=== PATIENT | female | born 1965 | race Caucasian/White ===

== ENCOUNTER 2018-01-18 09:52 | Outpatient (CLI) | payer OTHER, SELFPAY ==
[2018-01-18 11:24] LABS: Abs Immature Grans 0.02 k/cumm (0.0-0.09); Absolute Basophil Count 0.02 k/cumm (0.0-0.2); Absolute Eosinophil Count 0.17 k/cumm (0.0-0.7); Absolute Lymphocyte Count 1.99 k/cumm (1.2-3.4); Absolute Neutrophil Count 4.82 k/cumm (1.2-6.7); Basophils % 0.3; Eosinophils % 2.2; HCT 39.2 % (36.0-46.0); HGB 13.1 g/dL (12.0-15.5); Immature Grans % 0.3; Lymphocytes % 26.1; Mean Corp. HGB Concentration 33.4 g/dL (32.0-36.0); Mean Corpuscular Hemoglobin 28.4 pg (27.0-33.0); Mean Corpuscular Volume 84.8 fL (80-95); Mean Platelet Volume 9.6 fL (8.0-11.0); Monocytes % 7.9; Neutrophils % 63.2; Platelet Count 354 x1000/uL (130-400); RBC 4.62 m/cumm (4.00-5.20); RBC Distribution Width 14.6 % (11.7-14.6); White Blood Cell Count 7.62 k/cumm (4.4-10.8)
[2018-01-18 12:06] LABS: ALT 29 U/L (12-78); AST 17 U/L (15-37); Albumin 3.7 g/dL (3.4-5.0); Alkaline Phosphatase 57 U/L (46-116); Anion Gap 8.6 mmol/L (3-11); BUN 25 mg/dL (7-18); Bilirubin, Total 0.4 mg/dL (0.2-1.0); CO2 25.4 mmol/L (21.0-32.0); CREATININE 0.86 mg/dL (0.55-1.02); Calcium 9.3 mg/dL (8.5-10.1); Chloride 105 mmol/L (98-107); Cholesterol 182 mg/dL (50-200); Glucose 114 mg/dL (70-100); HDL Cholesterol 69 mg/dL (40-60); LDL CHOLESTEROL 96 mg/dL (<100); Potassium 4.5 mmol/L (3.5-5.1); Sodium 139 mmol/L (136-145); Total Protein 6.7 g/dL (6.4-8.2); Triglyceride 48 mg/dL (30-150)
[2018-01-18 15:11] LABS: Amylase 51 U/L (25-115); Lipase 191 U/L (73-393)
[2018-01-18 22:24] LABS: Hemoglobin A1C 5.4 % (4.5-6.2)
== END 2018-01-18 10:12 ==
PROVIDERS: PCP Nurse Practitioner Family; Visit Provider Nurse Practitioner Family
DX: R10.11 Right upper quadrant pain (principal); G89.29 Other chronic pain; E78.5 Hyperlipidemia, unspecified; R73.03 Prediabetes
CPT/HCPCS: 36415; 80053; 80061; 83690; 83721; 82150; 83036; 85025

== ENCOUNTER 2018-05-03 09:54 | Outpatient (REF) | payer OTHER, SELFPAY ==
--- NOTE | 2018-05-03 08:50 | PAPFT_PTH ---
PATIENT: Ashlyn Pruitt LOC: [facility] U#:[id number] AGE/SX: 53/F ROOM: RE05/03/[address]: YONY Ortiz : 1965 BED: DIS: 05/03/2018 SPEC #: [id number] RECD: 05/03/18 12:58 STATUS: LASHA REBreanna #: [id number] MACEY: 05/03/18 08:[address]: Maria Rothman DEPT: [facility] Cytology RECD BY: Tangela Wetzel Tissues: 1 - CX/ENDOCX FOR PAP SMEARS Procedures: PAP THIN PREP/UVM Screening HPV DNA PROBE Comments: [id number]
== END 2018-05-03 10:14 ==
LOC: LBN 09:54
PROVIDERS: PCP Nurse Practitioner Family; Visit Provider Nurse Practitioner Family
DX: Z12.4 Encounter for screening for malignant neoplasm of cervix (principal); Z11.51 Encounter for screening for human papillomavirus (HPV)
CPT/HCPCS: 88142; 87624

== ENCOUNTER 2018-08-23 00:40 | Outpatient (CLI) | payer OTHER, SELFPAY ==
--- NOTE | 2018-08-23 07:30 | DI.MAMMO_ITS ---
SYMPTOMS/DIAGNOSIS: SCREENING, Z12.31 MAMMOGRAMS: Mammograms were interpreted according to the usual protocol including computer analysis with CAD system, tomosynthesis and C view imaging. The breast tissue is heterogeneously radiodense, which lowers the sensitivity of the study. There is no dominant mass. There are no suspicious calcifications and there has been no significant interval change when compared with prior images. SUMMARY: No evidence of malignancy, category 1. Yearly screening mammography is recommended. Breast density category C. MQSA ASSESSMENT OF FINDINGS: Negative. Category 1. Patient will receive a letter notifying them of these results. Bi-RADS category C. The breasts are heterogeneously dense, which may obscure small masses.
== END 2018-08-23 01:00 ==
PROVIDERS: PCP Nurse Practitioner Family; Visit Provider Nurse Practitioner Family
DX: Z12.31 Encounter for screening mammogram for malignant neoplasm of breast (principal)
CPT/HCPCS: 77063; 77067

== ENCOUNTER 2018-08-26 19:04 | Emergency (ER) | payer OTHER, SELFPAY ==
[2018-08-26] VITALS (38 sets, daily range): BP systolic 77–154; BP diastolic 40–109; PULSE 57–97; RESP 12–25; TEMP 37.1; O2SAT 99–100
--- NOTE | 2018-08-26 19:17 | DI.RAD_ITS ---
SYMPTOM/DIAGNOSIS: LEFT CHEST PRESSURE AP AND LATERAL CHEST: Comparison is made with 16 December 2009 The heart size is normal. Leads overlie the chest. The lungs appear clear. No infiltrate, effusion or pneumothorax is seen. There are no thoracic compression fractures. IMPRESSION: Negative chest x-ray.
[2018-08-26] MEDS: Aspirin 81 MG CHEW 324 MG CH (19:20)
[2018-08-26 19:26] LABS: Abs Immature Grans 0.02 k/cumm (0.0-0.09); Absolute Basophil Count 0.03 k/cumm (0.0-0.2); Absolute Eosinophil Count 0.12 k/cumm (0.0-0.7); Absolute Lymphocyte Count 3.22 k/cumm (1.2-3.4); Absolute Monocyte Count 0.82 k/cumm (0.11-0.7); Absolute Neutrophil Count 4.92 k/cumm (1.2-6.7); Basophils % 0.3; Eosinophils % 1.3; HCT 39.8 % (36.0-46.0); HGB 13.5 g/dL (12.0-15.5); Immature Grans % 0.2; Lymphocytes % 35.3; Mean Corp. HGB Concentration 33.9 g/dL (32.0-36.0); Mean Corpuscular Hemoglobin 27.1 pg (27.0-33.0); Mean Corpuscular Volume 79.9 fL (80-95); Mean Platelet Volume 9.5 fL (8.0-11.0); Neutrophils % 53.9; Platelet Count 410 x1000/uL (130-400); RBC 4.98 m/cumm (4.00-5.20); RBC Distribution Width 14.1 % (11.7-14.6); White Blood Cell Count 9.13 k/cumm (4.4-10.8)
[2018-08-26 20:09] LABS: ALT 30 U/L (12-78); AST 23 U/L (15-37); Albumin 4.1 g/dL (3.4-5.0); Alkaline Phosphatase 59 U/L (46-116); Anion Gap 13.2 mmol/L (3-11); BUN 9 mg/dL (7-18); Bilirubin, Total 0.8 mg/dL (0.2-1.0); CO2 21.8 mmol/L (21.0-32.0); CREATININE 0.75 mg/dL (0.55-1.02); Calcium 9.7 mg/dL (8.5-10.1); Chloride 104 mmol/L (98-107); Glucose 102 mg/dL (70-100); Lipase 170 U/L (73-393); Magnesium 1.8 mg/dL (1.8-2.4); NT-proBNP 40 pg/mL; Potassium 3.3 mmol/L (3.5-5.1); Sodium 139 mmol/L (136-145); Total Protein 7.4 g/dL (6.4-8.2)
[2018-08-26 20:12] LABS: Troponin I < 0.05 ng/mL (0.00-0.06)
--- NOTE | 2018-08-26 20:17 | DI.VRAD_ITS ---
EXAM: XR Chest, 2 Views EXAM DATE/TIME: 08/26/2018 7:18 PM CLINICAL HISTORY: 53 years old, female; Left-sided chest pain; Patient HX: Left chest pressure TECHNIQUE: Imaging protocol: XR of the chest, 2 views. COMPARISON: No relevant prior studies available. FINDINGS: Lungs: Lung bustamante are clear. No infiltrates. Pulmonary vaculature normal. Pleural space: No pleural effusion. No pneumothorax. Heart/Mediastinum: Heart size normal. No mediastinal widening. Bones/joints: No acute osseous abnormalities are identified. Other findings: No tracheal shift. IMPRESSION: No acute thoracic process. Dictated and Authenticated by: Carlos Muñiz MD. Ordering:GLORIA Krishna MD
--- NOTE | 2018-08-26 20:34 | W.ED.GENAD ---
Discharge Plan Disposition Patient Disposition: [facility] Condition: Stable Discharge Details Chief Complaint: Chest Pain Clinical Impression: Chest pain, Acute electrocardiogram changes Primary Care Provider: Maria Rothman ED Provider: Tomi Gomez Home Meds and New Rx's Prescriptions: No Action bisacodyl [Dulcolax (bisacodyl)] 5 mg tablet,delayed release (DR/EC) 5 mg PO ONCE Qty: 4 RF: 0 polyethylene glycol 3350 17 gram/dose powder 255 g PO ONCE Qty: 255 RF: 0 omeprazole 20 MG capsule,delayed release(DR/EC) 20 mg PO BID Qty: 180 RF: 3 Discharge Data Discharge Date/Time-TO BE ENTERED AT DEPARTURE: 08/26/18 22:01 Medical Decision Making This is a pleasant 53-year-old female who presents today for evaluation of chest pain. Roughly 8 hours ago the patient developed sudden chest heaviness and pressure while sitting. The pain radiated to her left arm. She has nausea but no vomiting. There does appear to be both a food and mild exertional component. It was improved by rest and sleeping. Physical exam demonstrates no significant abnormalities except for a grade 2 systolic murmur which is new per the patient. Vital signs demonstrate an initial hypertension, but no tachycardia, no hypoxemia. Initial EKG showed atypical T wave morphology with diffuse ST depression in the lead II, aVF, III, V4, V5 and V6, with [address] elevation in aVR. Initial sibling nitroglycerin was given, and her blood pressure dropped to the 70s systolic very briefly and then returned to their normal levels shortly thereafter. She had near complete improvement of her chest pressure with the nitroglycerin. Repeat EKG that was ordered immediately after the nitro demonstrated improvement of the ST depressions. This is certainly concerning for cardiac etiology. Patient's laboratory work-up is returned relatively benign, potassium slightly low at 3.3, magnesium normal, electrolytes normal, troponin less than 0.05. proBNP normal. Lipase normal. I am concerned with the patient's symptomatology, especially with the improvement with nitroglycerin and the EKG changes after nitro. Currently her pain has dropped from a 10 out of 10 to a 5 out of 10, will hold off in any additional sublingual nitro, but due to give a trial of Nitropaste. We will contact [facility] for potential consultation and transfer. 9: 04pm Posterior EKG has returned and shows no significant elevation in V7 VA or V9. I did contact [facility] and discussed the case with Dr. Hoskins, he reviewed the EKGs as well, we discussed the ST changes that occurred with nitroglycerin, as well as her symptoms. Although the patient has no cardiac risk factors that we are aware of, with her notable chest pain, her diffuse ST depressions, or elevation in aVR, and V1, and the resolution of these changes with nitroglycerin, I am certainly concerned for an ACS component. We have already started heparin, given aspirin, and Plavix. Cardiology does agree on the need for further evaluation. They have agreed to accept the patient to [facility] for further evaluation and management under Dr. Chatterjee. They do not recommend any TPA at this time. We are currently utilizing morphine for pain control. She rates her pain is a 5 out of 10 at this time. Patient will be transferred by [facility] for further management at [facility]. I have extensively reviewed the treatment plan and discharge instructions with the patient. I have addressed all patient concerns at this time. The patient was made aware of what symptoms to monitor for that would warrant a return to the emergency department. Discussed the plan with the patient, they demonstrate verbal understanding and agreement with our assessment and plan at this time. At time of transfer the patient was reassessed and continued to demonstrate current medical stability. No signs of acute respiratory distress requiring intubation, hemodynamic instability requiring pressor support, or rapidly declining mental status. The patient is stable for transport. EKG 19: 10 Rate 92, intervals normal [address] elevation in V1, as well as aVR, less than 1 mm depression in lead II, aVF, V3, V4, V5 and V6. EKG 19: 30 Rate 81, intervals normal, sinus rhythm, less than [address] elevation in aVR and V1, no more ST depression. No Q waves. EKG 20: 55 Posterior EKG, rate 83, intervals normal, sinus rhythm, ST segments unchanged from prior EKGs, V7, V8, and V9 show no evidence of significant ST elevation. COMPARISON: No relevant prior studies available. FINDINGS: Lungs: Lung bustamante are clear. No infiltrates. Pulmonary vaculature normal. Pleural space: No pleural effusion. No pneumothorax. Heart/Mediastinum: Heart size normal. No mediastinal widening. Bones/joints: No acute osseous abnormalities are identified. Other findings: No tracheal shift. IMPRESSION: No acute thoracic process. Dictated and Authenticated by: Carlos Muñiz MD. Ordering:GLORIA Krishna MD [facility] General Date/Time Provider Initiated Documentation: 08/26/18 19:05. HPI Narrative: This is a 53-year-old female with no significant past medical history who presents today for evaluation of her chest pain. The patient states that earlier this afternoon she was just sitting and eating when she developed a notable chest pressure and heaviness, it felt like there was a significant weight on her chest. It seemed to be worsened by food and exertion, it had radiation to her left arm, gradually worsening continued throughout the day. It was slightly improved when she laid down and rested. She denies any vomiting, but does admit to nausea. She denies any abdominal pain, tearing sensation in her chest, right arm pain, headache or neck pain. She denies any history of tobacco abuse, or high cholesterol, or hypertension. She denies any previous episode like this in the past. She denies any history of cardiac disease. No other complaints at this time. No other modifying factors Related Data Home Medications Medication Instructions Recorded Confirmed omeprazole 20 mg PO BID #180 tab-cap 18 08/26/18 bisacodyl 5 mg tablet,delayed 5 mg PO ONCE #4 tab 02/24/18 06/01/18 release polyethylene glycol 3350 17 255 g PO ONCE #255 gm 02/24/18 06/01/18 gram/dose oral powder Previous Rx's Medication Instructions Recorded omeprazole 20 mg PO BID #180 tab-cap 07/14/17 bisacodyl 5 mg tablet,delayed 5 mg PO ONCE #4 tab 02/24/18 release polyethylene glycol 3350 17 255 g PO ONCE #255 gm 02/24/18 gram/dose oral powder Allergies Allergy/AdvReac Type Severity Reaction Status Date / Time No Known Allergies Allergy Verified 06/01/18 10:51 General Stated Complaint: Chest Pain HARPREET: 2 Review of Systems Review of Systems All systems reviewed & are unremarkable except as noted in HPI and below PFSH Medical History Chronic RUQ pain (Chronic ~2012) GERD (gastroesophageal reflux disease) (Suspected 10/21/14) Surgical History Social History Smoking/Tobacco Use Status: Never Second Hand Exposure: Yes Alcohol Intake: current Alcohol Intake frequency: a few times a month Alcohol type: hard liquor Substance use type: does not use Caregiver/Support person: No Household members: significant other Housing: house Pets and animals: Yes Pets and animals: cat(s) and dog(s) Sexually active: Yes Do you think of yourself as: straight/heterosexual Current gender identity: female What is your relationship status?: living with partner How often do you talk on the phone with friends or family?: three or more times per week How often do you get together with friends or relatives?: once per week How often do you attend episcopalian or rastafari services?: decline to answer Do you belong to any clubs or organized social groups?: no Panel score (0-1 are the most socially isolated patients): 2 What type of physical activity do you participate in: walking Duration: 15-30 minutes/day Frequency: 1-2 times per week Lori/Caodaism: Sikh Special lori needs: No Do you feel safe at home: Yes Female Reproductive History Menstrual control method: other (BTL) History History 4 Para 3 Hx # Term Pregnancies Multiple births Hx # Pregnancies Ectopic pregnancies AB induced Hx Number of Living Children 3 AB spontaneous 1 Exam Narrative Exam Narrative: 1.Const: Well-nourished, Well-developed, appearing stated age 2.Eyes: PERRL, no conjunctival injection, and symmetrical lids. 3.ENT: Atraumatic external nose and ears. Moist MM. Neck: Symmetric, trachea midline, No thyromegaly. 4.CVS: +S1/S2, grade 2 systolic murmur auscultated loudest over the third left intercostal space. Peripheral pulses 2+ and equal in all extremities. Brisk capillary refill in all extremities. 5.RESP: Unlabored respiratory effort. Clear to auscultation bilaterally. No wheezes rales or rhonchi 6.GI: Soft, Nontender/Nondistended, No hepatosplenomegaly. No guarding or rebound. 7.MSK: Normocephalic/Atraumatic, Extremities w/o deformity or ttp No cyanosis or clubbing, Normal movement of all extremities 8.Skin: Warm, Dry. No rashes or lesions. 9.Neuro: roller stainer II-XII grossly intact. Sensation grossly intact, no focal neurologic deficits. 10.Psych: (AAO) x3. Appropriate mood and affect Course Vital Signs Temperature 37.1 C 08/26/18 19:12 Pulse 86 08/26/18 19:12 Respiratory Rate 22 08/26/18 19:12 Blood Pressure 154/88 H 08/26/18 19:12 Pulse Oximetry 100 08/26/18 19:12 Temperature 37.1 C 08/26/18 19:12 Temperature Source Skin 08/26/18 19:12 Pulse 86 08/26/18 19:12 Respiratory Rate 22 08/26/18 19:12 Respiratory Effort Non-Labored 08/26/18 19:22 Blood Pressure 154/88 H 08/26/18 19:12 Pulse Oximetry 100 08/26/18 19:12 Oxygen Delivery Method Room Air 08/26/18 19:12 Oxygen Flow Rate 0 08/26/18 19:12 Pain Level 5 08/26/18 19:12 Lab/Test Results Lab/Test Results: Laboratory Tests Range/Units 08/26/18 08/26/18 19:16 19:16 WBC (4.4-10.8) k/cumm 9.13 RBC (4.00-5.20) m/cumm 4.98 Hgb (12.0-15.5) g/dL 13.5 Hct (36.0-46.0) % 39.8 MCV (80-95) fL 79.9 L MCH (27.0-33.0) pg 27.1 MCHC (32.0-36.0) g/dL 33.9 RDW (11.7-14.6) % 14.1 Plt Count (130-400) x1000/uL 410 H MPV (8.0-11.0) fL 9.5 Immature Gran % 0.2 Neutrophils % 53.9 Lymphocytes % 35.3 Monocytes % 9.0 Eosinophils % 1.3 Basophils % 0.3 Absolute Neutrophils (1.2-6.7) k/cumm 4.92 Absolute Lymphocytes (1.2-3.4) k/cumm 3.22 Absolute Monocytes (0.11-0.7) k/cumm 0.82 H Absolute Eosinophils (0.0-0.7) k/cumm 0.12 Absolute Basophils (0.0-0.2) k/cumm 0.03 Sodium (136-145) mmol/L 139 Potassium (3.5-5.1) mmol/L 3.3 L Chloride (98-107) mmol/L 104 Carbon Dioxide (21.0-32.0) mmol/L 21.8 Anion Gap (3-11) mmol/L 13.2 H BUN (7-18) mg/dL 9 Creatinine (0.55-1.02) mg/dL 0.75 Estimated GFR/1.73 m2 (mL/min/1.73m2) >= 60.00 Glucose (70-100) mg/dL 102 H Calcium (8.5-10.1) mg/dL 9.7 Magnesium (1.8-2.4) mg/dL 1.8 Total Bilirubin (0.2-1.0) mg/dL 0.8 AST (15-37) U/L 23 ALT (12-78) U/L 30 Alkaline Phosphatase (46-116) U/L 59 Troponin I (0.00-0.06) ng/mL < 0.05 NT-Pro-B Natriuret Pep ( - 299) pg/mL 40 Total Protein (6.4-8.2) g/dL 7.4 Albumin (3.4-5.0) g/dL 4.1 Lipase (73-393) U/L 170
--- NOTE | 2018-08-26 20:42 | ED.GENADUL_ITS ---
Discharge Plan Disposition Patient Disposition: [facility] Condition: Stable Discharge Details Chief Complaint: Chest Pain Clinical Impression: Chest pain, Acute electrocardiogram changes Primary Care Provider: Maria Rothman ED Provider: Tomi Gomez Home Meds and New Rx's Prescriptions: No Action bisacodyl [Dulcolax (bisacodyl)] 5 mg tablet,delayed release (DR/EC) 5 mg PO ONCE Qty: 4 RF: 0 polyethylene glycol 3350 17 gram/dose powder 255 g PO ONCE Qty: 255 RF: 0 omeprazole 20 MG capsule,delayed release(DR/EC) 20 mg PO BID Qty: 180 RF: 3 Discharge Data Discharge Date/Time-TO BE ENTERED AT DEPARTURE: 08/26/18 22:01 Medical Decision Making This is a pleasant 53-year-old female who presents today for evaluation of chest pain. Roughly 8 hours ago the patient developed sudden chest heaviness and pressure while sitting. The pain radiated to her left arm. She has nausea but no vomiting. There does appear to be both a food and mild exertional component. It was improved by rest and sleeping. Physical exam demonstrates no significant abnormalities except for a grade 2 systolic murmur which is new per the patient. Vital signs demonstrate an initial hypertension, but no tachycardia, no hypoxemia. Initial EKG showed atypical T wave morphology with diffuse ST depression in the lead II, aVF, III, V4, V5 and V6, with [address] elevation in aVR. Initial sibling nitroglycerin was given, and her blood pressure dropped to the 70s systolic very briefly and then returned to their normal levels shortly thereafter. She had near complete improvement of her chest pressure with the nitroglycerin. Repeat EKG that was ordered immediately after the nitro demonstrated improvement of the ST depressions. This is certainly concerning for cardiac etiology. Patient's laboratory work-up is returned relatively benign, potassium slightly low at 3.3, magnesium normal, electrolytes normal, troponin less than 0.05. proBNP normal. Lipase normal. I am concerned with the patient's symptomatology, especially with the improvement with nitroglycerin and the EKG changes after nitro. Currently her pain has dropped from a 10 out of 10 to a 5 out of 10, will hold off in any additional sublingual nitro, but due to give a trial of Nitropaste. We will contact [facility] for potential consultation and transfer. 9: 04pm Posterior EKG has returned and shows no significant elevation in V7 VA or V9. I did contact [facility] and discussed the case with Dr. Hoskins, he reviewed the EKGs as well, we discussed the ST changes that occurred with nitroglycerin, as well as her symptoms. Although the patient has no cardiac risk factors that we are aware of, with her notable chest pain, her diffuse ST depressions, or elevation in aVR, and V1, and the resolution of these changes with nitroglycerin, I am certainly concerned for an ACS component. We have already started heparin, given aspirin, and Plavix. Cardiology does agree on the need for further evaluation. They have agreed to accept the patient to [facility] for further evaluation and management under Dr. Chatterjee. They do not recommend any TPA at this time. We are currently utilizing morphine for pain control. She rates her pain is a 5 out of 10 at this time. Patient will be transferred by [facility] for further management at [facility]. I have extensively reviewed the treatment plan and discharge instructions with the patient. I have addressed all patient concerns at this time. The patient was made aware of what symptoms to monitor for that would warrant a return to the emergency department. Discussed the plan with the patient, they demonstrate verbal understanding and agreement with our assessment and plan at this time. At time of transfer the patient was reassessed and continued to demonstrate current medical stability. No signs of acute respiratory distress requiring intubation, hemodynamic instability requiring pressor support, or rapidly declining mental status. The patient is stable for transport. EKG 19: 10 Rate 92, intervals normal [address] elevation in V1, as well as aVR, less than 1 mm depression in lead II, aVF, V3, V4, V5 and V6. EKG 19: 30 Rate 81, intervals normal, sinus rhythm, less than [address] elevation in aVR and V1, no more ST depression. No Q waves. EKG 20: 55 Posterior EKG, rate 83, intervals normal, sinus rhythm, ST segments unchanged from prior EKGs, V7, V8, and V9 show no evidence of significant ST elevation. COMPARISON: No relevant prior studies available. FINDINGS: Lungs: Lung bustamante are clear. No infiltrates. Pulmonary vaculature normal. Pleural space: No pleural effusion. No pneumothorax. Heart/Mediastinum: Heart size normal. No mediastinal widening. Bones/joints: No acute osseous abnormalities are identified. Other findings: No tracheal shift. IMPRESSION: No acute thoracic process. Dictated and Authenticated by: Carlos Muñiz MD. Ordering:GLORIA Krishna MD [facility] General Date/Time Provider Initiated Documentation: 08/26/18 19:05 . HPI Narrative: This is a 53-year-old female with no significant past medical history who presents today for evaluation of her chest pain. The patient states that earlier this afternoon she was just sitting and eating when she developed a notable chest pressure and heaviness, it felt like there was a significant we ight on her chest. It seemed to be worsened by food and exertion, it had radiation to her left arm, gradually worsening continued throughout the day. It was slightly improved when she laid down and rested. She denies any vomiting, but does admit to nausea. She denies any abdominal pain, tearing sensation in her chest, right arm pain, headache or neck pain. She denies any history of tobacco abuse, or high cholesterol, or hypertension. She denies any previous episode like this in the past. She denies any history of cardiac disease. No other complaints at this time. No other modifying factors Related Data Home Medications Medication Instructions Recorded Confirmed omeprazole 20 mg PO BID #180 tab-cap 18 08/26/18 bisacodyl 5 mg tablet,delayed 5 mg PO ONCE #4 tab 02/24/18 06/01/18 release polyethylene glycol 3350 17 255 g PO ONCE #255 gm 02/24/18 06/01/18 gram/dose oral powder Previous Rx's Medication Instructions Recorded omeprazole 20 mg PO BID #180 tab-cap 07/14/17 bisacodyl 5 mg tablet,delayed 5 mg PO ONCE #4 tab 02/24/18 release polyethylene glycol 3350 17 255 g PO ONCE #255 gm 02/24/18 gram/dose oral powder Allergies Allergy/AdvReac Type Severity Reaction Status Date / Time No Known Allergies Allergy Verified 06/01/18 10:51 General Stated Complaint: Chest Pain HARPREET: 2 Review of Systems Review of Systems All systems reviewed & are unremarkable except as noted in HPI and below PFSH Medical History Chronic RUQ pain (Chronic ~2012) GERD (gastroesophageal reflux disease) (Suspected 10/21/14) Surgical History Ligation of fallopian tube (Inactive ~1993) Social History Smoking/Tobacco Use Status: Never Second Hand Exposure: Yes Alcohol Intake: current Alcohol Intake frequency: a few times a month Alcohol type: hard liquor Substance use type: does not use Caregiver/Support person: No Household members: significant other Housing: house Pets and animals: Yes Pets and animals: cat(s) and dog(s) Sexually active: Yes Do you think of yourself as: straight/heterosexual Current gender identity: female What is your relationship status?: living with partner How often do you talk on the phone with friends or family?: three or more times per week How often do you get together with friends or relatives?: once per week How often do you attend sikh or pentecostal services?: decline to answer Do you belong to any clubs or organized social groups?: no Panel score (0-1 are the most socially isolated patients): 2 What type of physical activity do you participate in: walking Duration: 15-30 minutes/day Frequency: 1-2 times per week Lori/Mu-Ism: Yazidism Special lori needs: No Do you feel safe at home: Yes Female Reproductive History Menstrual control method: other (BTL) History History 4 Para 3 Hx # Term Pregnancies Multiple births Hx # Pregnancies Ectopic pregnancies AB induced Hx Number of Living Children 3 AB spontaneous 1 Exam Narrative Exam Narrative: 1.Const: Well-nourished, Well-developed, appearing stated age 2.Eyes: PERRL, no conjunctival injection, and symmetrical lids. 3.ENT: Atraumatic external nose and ears. Moist MM. Neck: Symmetric, trachea midline, No thyromegaly. 4.CVS: +S1/S2, grade 2 systolic murmur auscultated loudest over the third left intercostal space. Peripheral pulses 2+ and equal in all extremities. Brisk capillary refill in all extremities. 5.RESP: Unlabored respiratory effort. Clear to auscultation bilaterally. No wheezes rales or rhonchi 6.GI: Soft, Nontender/Nondistended, No hepatosplenomegaly. No guarding or rebound. 7.MSK: Normocephalic/Atraumatic, Extremities w/o deformity or ttp No cyanosis or clubbing, Normal movement of all extremities 8.Skin: Warm, Dry. No rashes or lesions. 9.Neuro: application support manager II-XII grossly intact. Sensation grossly intact, no focal neurologic deficits. 10.Psych: (AAO) x3. Appropriate mood and affect Course Vital Signs Temperature 37.1 C 08/26/18 19:12 Pulse 86 08/26/18 19:12 Respiratory Rate 22 08/26/18 19:12 Blood Pressure 154/88 H 08/26/18 19:12 Pulse Oximetry 100 08/26/18 19:12 Temperature 37.1 C 08/26/18 19:12 Temperature Source Skin 08/26/18 19:12 Pulse 86 08/26/18 19:12 Respiratory Rate 22 08/26/18 19:12 Respiratory Effort Non-Labored 08/26/18 19:22 Blood Pressure 154/88 H 08/26/18 19:12 Pulse Oximetry 100 08/26/18 19:12 Oxygen Delivery Method Room Air 08/26/18 19:12 Oxygen Flow Rate 0 08/26/18 19:12 Pain Level 5 08/26/18 19:12 Lab/Test Results Lab/Test Results: Laboratory Tests Range/Units 08/26/18 08/26/18 19:16 19:16 WBC (4.4-10.8) k/cumm 9.13 RBC (4.00-5.20) m/cumm 4.98 Hgb (12.0-15.5) g/dL 13.5 Hct (36.0-46.0) % 39.8 MCV (80-95) fL 79.9 L MCH (27.0-33.0) pg 27.1 MCHC (32.0-36.0) g/dL 33.9 RDW (11.7-14.6) % 14.1 Plt Count (130-400) x1000/uL 410 H MPV (8.0-11.0) fL 9.5 Immature Gran % 0.2 Neutrophils % 53.9 Lymphocytes % 35.3 Monocytes % 9.0 Eosinophils % 1.3 Basophils % 0.3 Absolute Neutrophils (1.2-6.7) k/cumm 4.92 Absolute Lymphocytes (1.2-3.4) k/cumm 3.22 Absolute Monocytes (0.11-0.7) k/cumm 0.82 H Absolute Eosinophils (0.0-0.7) k/cumm 0.12 Absolute Basophils (0.0-0.2) k/cumm 0.03 Sodium (136-145) mmol/L 139 Potassium (3.5-5.1) mmol/L 3.3 L Chloride (98-107) mmol/L 104 Carbon Dioxide (21.0-32.0) mmol/L 21.8 Anion Gap (3-11) mmol/L 13.2 H BUN (7-18) mg/dL 9 Creatinine (0.55-1.02) mg/dL 0.75 Estimated GFR/1.73 m2 (mL/min/1.73m2) >= 60.00 Glucose (70-100) mg/dL 102 H Calcium (8.5-10.1) mg/dL 9.7 Magnesium (1.8-2.4) mg/dL 1.8 Total Bilirubin (0.2-1.0) mg/dL 0.8 AST (15-37) U/L 23 ALT (12-78) U/L 30 Alkaline Phosphatase (46-116) U/L 59 Troponin I (0.00-0.06) ng/mL < 0.05 NT-Pro-B Natriuret Pep ( - 299) pg/mL 40 Total Protein (6.4-8.2) g/dL 7.4 Albumin (3.4-5.0) g/dL 4.1 Lipase (73-393) U/L 170
[2018-08-26] MEDS: MORPHine 10 MG/ML VIAL 4 MG IVP (21:13)
[2018-08-26] MEDS: Clopidogrel 300 MG TAB PO (21:14)
[2018-08-26 21:25] LABS: INR 1.1 (0.9-1.1); PTT Activated 23.1 sec (21.0-31.4); Prothrombin Time 10.8 sec (9.3-11.0)
== END 2018-08-26 22:01 | disposition short-term general hospital (02) ==
PROVIDERS: Emergency Provider Student in an Organized Health Care Education/Training Program; PCP Nurse Practitioner Family
DX: R07.9 Chest pain, unspecified (principal); R94.31 Abnormal electrocardiogram [ECG] [EKG]
CPT/HCPCS: 36415; 80053; 83690; 93005; 99285; 71046; 82565; 83735; 83880; 84484; 85025; 85610; 85730; 93010; J2270

== ENCOUNTER 2018-11-03 08:57 | Day surgery (SDC) | payer OTHER, SELFPAY ==
[2018-11-03 09:15] VITALS: BP 142/91; PULSE 79; RESP 18; TEMP 36.7; O2SAT 100
[2018-11-03] MEDS: Lactated Ringers 1,000 ML 80 ML IV (09:36)
--- NOTE | 2018-11-03 10:39 | W.PM.DSUDISC ---
Discharge Plan Disposition Patient Disposition: HOME Condition: Good Discharge Details Reason For Visit: EGD, colonoscopy Attending Provider: Julieta Villa Primary Care Provider: Maria Rothman Home Meds and New Rx's Prescriptions: Continued omeprazole 20 mg capsule,delayed release(DR/EC) 20 mg PO DAILY RF: 0 Discharge Instructions Additional Instructions: Findings: Your EGD looked normal. Routine biopsies were done, my office will contact you with results. Your colonoscopy was normal. Follow up: Plan for routine screening colonoscopy in 10 years or sooner as symptoms indicate. Please call if you develop: fevers >101.5 Nausea or Vomiting Abdominal pain that is not transient DAY SURGERY UNIT POST COLONOSCOPY INSTRUCTIONS 1. Because there will be medication in your system for the next 24 hours, you may feel a little sleepy. Your coordination will be affected. Therefore: a. Do not drive or operate dangerous equipment for 24 hours. b. Do not drink alcohol beverages for 24 hours (not even beer). c. Plan to go home and rest for the day. 2. Generally there are no restrictions on your activity after a day or so has gone by, but you may feel a bit fatigued for a few days. 3 After you arrive home you may have a light meal and return to a normal diet as you can tolerate it without feeling sick to your stomach. 4. After surgery, you may feel pain or discomfort. This should be only transient, but if it persists please contact your doctor. 5. If there are any questions regarding the findings of your procedure, please feel free to contact your doctor. 6. If you are unable to contact your doctor with a problem, contact the hospital at [phone]. 7. Continue all your regular medications unless directed otherwise. I understand the above instructions and have no questions. Signature of Patient or Responsible Adult Escort Date/Time Name of Responsible Adult Escort Signature of Nurse Date/Time Activity:: Activity as Tolerated Diet:: As Tolerated Discharge Orders Discharge Orders: Discharge Order (Routine); Ordered 11/03/18 Ordered By: Julieta Villa DS: Diagnosis Discharge Diagnosis (1) Normal colonoscopy: Status: Acute (2) Hx of esophagogastroduodenoscopy: Status: Chronic
--- NOTE | 2018-11-03 10:53 | STOM_PTH ---
PATIENT: Ashlyn Pruitt LOC: [facility] U#:[id number] AGE/SX: 53/F ROOM: RE11/03/[address]: Julieta Villa MD : [id number] BED: DIS: 11/03/2018 SPEC #: [id number] RECD: 11/03/18 12:50 STATUS: LASHA REQ #: [id number] MACEY: 11/03/18 10:[address]: Julieta Villa DEPT: Surgical Specimen RECD BY: Tangela Wetzel ENTERED: 11/03/18 12:51 SP TYPE: STOMACH OTHR DR: YONY Ortiz Tissues: 1 - BIOPSY BOWEL 2 - STOMACH BIOPSY Procedures: GROSS AND MICRO LEVEL 4 Comments: [id number]
[2018-11-03 12:05] VITALS: BP 119/86; PULSE 61; RESP 16; TEMP 36.3; O2SAT 100
--- NOTE | 2018-11-03 12:25 | ENDO_ITS ---
REPORT OF OPERATIVE PROCEDURE DATE OF SURGERY November 03, 2018 PREOPERATIVE DIAGNOSES 1. Reflux. 2. Right upper quadrant pain. 3. Need for colon screening. POSTOPERATIVE DIAGNOSES 1. Normal EGD. 2. Normal colon. PROCEDURES 1. EGD with duodenal and gastric biopsies. 2. Colonoscopy. SURGEON Julieta Villa M.D. ANESTHESIA General. INDICATIONS This is a 53-year-old woman with a penitentiary history of reflux and chronic right upper quadrant pain. She is also due for her first screening colonoscopy. She is asymptomatic and has no family history o f colon cancer. PROCEDURE DESCRIPTION She was placed in the left lateral decubitus position. Propofol was titrated to sedation. The scope w as advanced into the esophagus under direct visualization and down into the stomach and the duodenum. There was no duodenitis or ulcers noted. Biopsies were taken from the second portion to evaluate fo r celiac disease. The stomach itself appeared normal, including a retroflexed view of the fundus and lesser curvature. Routine biopsy was taken from the gastric antrum to evaluate for possible H. pylori . The GE junction showed no evidence of masses, Gupta's, inflammation or strictures. The air was wood ctioned from the stomach and the scope withdrawn with no esophageal lesions found. Digital rectal examination revealed no abnormalities. The scope was advanced to the cecum without dif ficulty. Her prep was excellent. The ileocecal valve and appendiceal orifice were clearly identified . The scope was slowly withdrawn with no abnormalities seen within the ascending, transverse, descend ing, sigmoid colon or rectum, including on retroflexed view. She tolerated the procedure well and was stable to Recovery. She will need a followup screening colonoscopy in 10 years or sooner if symptoms indicate. CC: Maria Rothman M.D.
== END 2018-11-03 12:26 | disposition home or self-care (01) ==
PROVIDERS: PCP Nurse Practitioner Family; Visit Provider Surgery
PROC: (CPT 43239; principal; 2018-11-03 11:15)
DX: Z12.11 Encounter for screening for malignant neoplasm of colon (principal); R10.11 Right upper quadrant pain; K21.9 Gastro-esophageal reflux disease without esophagitis
CPT/HCPCS: 43239; 45378; 81025; 88305; J2250; J3010

== ENCOUNTER 2021-06-16 01:27 | Outpatient (CLI) | payer OTHER, SELFPAY ==
--- NOTE | 2021-06-16 08:15 | DI.RAD_ITS ---
Exam(s) XR SHOULDER RT COMPLETE 2+V EXAM: XR SHOULDER RT COMPLETE 2+V CLINICAL HISTORY: right shoulder pain, M25.511. TECHNIQUE: 2D digital imaging was performed of the right shoulder. Five images were obtained. AP, Grashey, Y-view and axillary views were obtained. COMPARISON: No exams were available for comparison FINDINGS: BONES: No acute fracture is present. No bony destructive lesion is seen. JOINTS: No dislocation present. SOFT TISSUE: Normal. IMPRESSION: Unremarkable radiographs of the right shoulder. DATA REPOSITORY: RADIATION DOSE DELIVERED:
== END 2021-06-16 01:47 ==
PROVIDERS: PCP Nurse Practitioner Family; Visit Provider Nurse Practitioner Family
DX: M25.511 Pain in right shoulder (principal)
CPT/HCPCS: 73030

== ENCOUNTER → 2021-07-13 00:15 | Outpatient (CLI) | payer OTHER, SELFPAY ==
--- NOTE | 2021-07-13 08:15 | DI.MAMMO_ITS ---
Exam(s) MAMMO SCREENING EXAM: MAMMO SCREENING CLINICAL HISTORY: screening,Z12.39 TECHNIQUE: Mammograms were interpreted according to the usual protocol including computer analysis w [facility] CAD system, tomosynthesis and C-view imaging. COMPARISON: 2011 through 2018 FINDINGS: The breasts are composed of heterogeneously dense fibroglandular densities, Breast Density category C . No suspicious masses or suspicious microcalcifications are seen. No skin thickening or abnormal axillary lymph nodes are seen. There has been no significant change from prior exams. IMPRESSION: BI-RADS Category 1, Negative mammogram. Yearly screening mammography is recommended. Breast Density Category C, heterogeneously Dense. The mammogram demonstrates the patient's breast tissue is dense. Dense breast tissue is very common a nd is not abnormal but dense breast tissue can make it harder to find cancer on a mammogram. Also, de nse breast tissue may increase breast cancer risk. This information about the result of the mammogram report was provided to the patient to raise their awareness. Use this report when you speak with the patient about their risks for breast cancer, which includes their family history. At that time, you may recommend additional screening tests (Ultrasound or MRI) as they might be useful based on their r isk. A negative radiographic report should not delay biopsy if a dominant or clinically suspicious mass is present. Up to ten percent of cancers are not identified on mammography. A negative report may reinforce clinical impression. Adenosis and dense breasts may obscure an underlying neoplasm. False positive reports average 6 to 10%.
== END ==
PROVIDERS: PCP Nurse Practitioner Family; Visit Provider Nurse Practitioner Family
DX: Z12.31 Encounter for screening mammogram for malignant neoplasm of breast (principal)
CPT/HCPCS: 77063; 77067

== ENCOUNTER → 2021-08-14 00:14 | Outpatient (CLI) | payer OTHER, SELFPAY ==
--- NOTE | 2021-08-14 06:15 | DI.MRI_ITS ---
Exam(s) MR UPPER JOINT RT WO EXAM: MR UPPER JOINT RT WO CLINICAL HISTORY: Persistent SHOULDER pain,weakness,TRAUMATIC TEAR RT RTC,S46.011A. TECHNIQUE: Multiplanar multisequence MRI was performed. COMPARISON: CR XR SHOULDER RT COMPLETE 2+V from 06/16/2021 FINDINGS: BONES: There is no fracture or contusion pattern. JOINTS: There are mild degenerative changes seen at the acromioclavicular joint. The glenohumeral nikki int is normal. TENDONS: Supraspinatus: There is hyper intense intrasubstance signal seen in the midportion of the supraspinat us tendon consistent with a partial tear. Infraspinatus: Unremarkable. Subscapularis: Unremarkable. Teres Minor: There is a question of mild hyperintense signal seen in the teres minor tendon suspiciou s for degeneration or partial tear. Biceps and [place]: Unremarkable. MUSCLES: Unremarkable. GLENOID LABRUM: There is heterogeneous signal seen in the superior and anterior labrum. This may rep resent a tear or degeneration. SOFT TISSUES: Unremarkable. LIGAMENTS: Unremarkable. OTHER: There is a small amount of fluid seen in the subacromial subdeltoid bursa. IMPRESSION: 1. Findings of a intrasubstance tear of the supraspinatus tendon. 2. Mild hyperintense signal seen in the teres minor tendon which may represent degeneration or partia l tear. 3. Heterogeneous signal seen in the superior and anterior labrum which may represent a tear or degene ration. An MR arthrogram may be considered for further evaluation. DATA REPOSITORY:
== END ==
PROVIDERS: PCP Nurse Practitioner Family; Visit Provider Student in an Organized Health Care Education/Training Program
DX: M25.511 Pain in right shoulder; S46.011A Strain of muscle(s) and tendon(s) of the rotator cuff of right shoulder, initial encounter; M25.411 Effusion, right shoulder
CPT/HCPCS: 73221

== ENCOUNTER 2021-09-09 02:34 | Outpatient (CLI) | payer OTHER, SELFPAY ==
[2021-09-09 12:33] LABS: Source Nasal/Nares
[2021-09-09 17:37] LABS: COVID-19 PCR Negative (Negative)
== END 2021-09-09 02:35 | disposition home or self-care (01) ==
PROVIDERS: PCP Nurse Practitioner Family; Visit Provider Student in an Organized Health Care Education/Training Program
DX: Z20.822 Contact with and (suspected) exposure to COVID-19 (principal); Z01.818 Encounter for other preprocedural examination
CPT/HCPCS: 87635

== ENCOUNTER 2021-09-11 06:01 | Day surgery (SDC) | payer OTHER, SELFPAY ==
[2021-09-11] VITALS (8 sets, daily range): BP systolic 77–153; BP diastolic 35–87; PULSE 56–84; RESP 15–21; TEMP 36.3–36.7; O2SAT 97–99; BMI 26.6
--- NOTE | 2021-09-11 06:29 | W.ANESPRE ---
General Info Date of Service Date Performed: 09/11/21 Height: 5 ft 4 in Weight: 70.6 kg Body Mass Index (BMI): 26.6 Surgical Procedure: Operation Date: 09/11/21 07:40 Proposed Procedure Side Surgeon p Shoulder Possible Rotator Cuff Arthroscopic w/Extensive Debridement, Biceps Tenodesis, Subacromial Decompression Right Umair Hays MD Meds Allergies and Home Medications Allergies Allergy/AdvReac Type Severity Reaction Status Date / Time No Known Allergies Allergy Verified 09/11/21 07:15 Home Medication Medication Instructions Recorded omeprazole 20 mg capsule,delayed 20 mg PO DAILY #90 tab-caps 06/12/21 release Current Visit Medications: Current Medications Generic Name Dose Route Start Last Admin Trade Name Freq PRN Reason Stop Dose Admin Ringer's Solution 1,000 mls @ 30 mls/hr 09/11/21 06:00 IV 10/10/21 23:59 INFUSION ALEX Cefazolin Sodium/Dextrose 2 gm in 50 mls @ 100 mls/hr 09/11/21 06:00 Ancef Duplex IVPB 09/11/21 16:00 PREOP ALEX IV Miscellaneous Supplies 1 each 09/11/21 06:00 Iv Access IV 10/10/21 23:59 DIRECTED ALEX Sodium Chloride 0 ml 09/11/21 06:00 Normal Saline Flush 10 Ml Syr IV 10/10/21 23:59 PRN PRN Sodium Chloride 0 ml 09/11/21 06:00 Normal Saline 10 Ml Vial IJ 10/10/21 23:59 DIRECTED PRN Sterile Water 0 ml 09/11/21 06:00 Water,Injection,Sterile 10 Ml Vial IJ 10/10/21 23:59 DIRECTED PRN PFSH Active Problems Active Problems: Problem Status Onset Code Adhesive capsulitis of right shoulder M75.01 Bursitis of right shoulder M75.51 Tendonitis of long head of biceps brachii of right shoulder M75.21 Traumatic tear of right rotator cuff S46.011A Chronic RUQ pain ~2012 R10.11, G89.29 GERD (gastroesophageal reflux disease) K21.9 Onychomycosis B35.1 Surgical History Surgical History History of bilateral ligation of fallopian tubes History of esophagogastroduodenoscopy (EGD) (11/03/18) S/P colonoscopy (11/03/18) Tobacco Smoking/Tobacco Use Status: Never Passive smoking exposure: Yes Second hand exposure: Yes Alcohol Alcohol Intake: current Alcohol intake frequency: a few times a month Substance Use Substance use: Never Substance use type: does not use Prental History History 4 Para 3 Hx # Term Pregnancies Multiple births Hx # Pregnancies Ectopic pregnancies AB induced Hx Number of Living Children 3 AB spontaneous 1 Vital Signs and Lab Results Vital Signs Most Recent Vital Signs in EMR: Most Recent Vital Signs Temp Pulse Resp BP Pulse Ox 36.7 C 84 16 153/85 H 99 09/11/21 06:13 09/11/21 06:13 09/11/21 06:13 09/11/21 06:13 09/11/21 06:13 Lab Results Blood Type / Crossmatch: No Data to Display Complete Blood Count: No Data to Display Complete Metabolic Panel: No Data to Display Liver Function Panel: No Data to Display Coagulation Panel: No Data to Display Cardiac Panel: No Data to Display Arterial Blood Gas: No Data to Display Venous Blood Gas: No Data to Display Pancreas Panel: No Data to Display Thyroid Panel: No Data to Display Infectious Disease: Coronavirus (COVID-19)(PCR) Negative (Negative) 09/09/21 10:36 Coronavirus 2019 Source Nasal/Nares 09/09/21 10:36 Blood Cultures: No Data to Display Toxicology Panel: No Data to Display Anesthesia Assessment and Plan Anesthesia History Personal History: No History of Anesthesia Complications Family History: No Family History of Anesthesia Complications Exercise Tolerance Exercise Tolerance: Metabolic Equivalents>4 Pertinent Negatives Pertinent Negatives: No Symptoms of GERD, No Major Cardiovascular Symptoms or Complaints, No Major Pulmonary Symptoms or Complaints and No History of CVA/TIA Cardiac & Pulmonary Exam Cardiac Exam: Normal S1/S2 Heart Sounds Pulmonary Exam: Clear Bilateral Breath Sounds Implantable Cardiac Device Does patient have a Pacemaker or an ICD?: No Airway Exam Known Difficult Airway: No Mallampati Class: 2 Mouth Opening: Normal (> 3cm) Thyromental Distance: Greater than 3 cm Neck Range of Motion: Full ROM Neck Circumference: Normal Teeth Condition: Removable Dentures/Plates Upper ASA Classification ASA Score: ASA 2 Emergency Case?: No NPO Status NPO Status: NPO Clears >2 hours, Solids >8 hours Anesthesia Plan Resuscitation Status: Full Code Anesthesia Technique: General Anesthesia Airway Planned: Endotracheal Tube Pain Management: Surgeon and patient request nerve block Monitors Used: Standard Monitors
[2021-09-11] MEDS: Lactated Ringers 1,000 ML 30 ML IV (06:55)
[2021-09-11] MEDS: ceFAZolin 2 GM/50 ML BAG IVPB (07:38)
--- NOTE | 2021-09-11 08:22 | W.ANESNERVE ---
Nerve Block Single Injection Procedure Date and Time Date Performed: 09/11/21 Procedure Start: 07:10 Location Where Procedure Performed Procedure Location: Day Surgery Unit Reason Performed: Postoperative Analgesia Requesting Provider: Umair Hays Timeout Performed Timeout Performed: Yes Monitoring Used ECG, Blood Pressure and SpO2 Sterility Sterility: Hand Hygiene, Surgical Cap, Surgical Mask, Sterile Gloves and Chlorhexidine Sedation Given During Procedure Sedation Given (Indicate Dose Given): Versed IV Dose:: 2 mg Patient Mental Status Patient Mental Status: Sedate with meaningful communication Nerve Block 1st Nerve Block: Laterality: Right Block Type: Interscalene Needle / Catheter Used: 100mm SonoPlex II Local Anesthetic Bolus (Indicate Dose Given): Lidocaine used for local infiltration of skin, Injected in 3-5ml increments after negative blood aspiration and Bupivacaine 0.5% Dose:: 20 ml Additives (Indicate Dose Given): Precedex Dose:: 70 mcg Ultrasound: Sterile probe cover and gel used Ultrasound Image Saved?: Yes Nerve Stimulator: Not Used Paresthesia: None Procedure Tolerated: No Complications and Patient tolerated well Procedure Outcome: Successful Performed By: Jeffy Fernandez
[2021-09-11] MEDS: EPINEPHrine 30 MG/30 ML VIAL (08:46)
--- NOTE | 2021-09-11 09:05 | PDOC.DSDIS_ITS ---
Discharge Plan Disposition Patient Disposition: HOME Condition: Stable Discharge Details Reason For Visit: Right shoulder surgery Attending Provider: Umair Hays Primary Care Provider: Maria Rothman Home Meds and New Rx's Prescriptions: New naproxen 250 mg tablet 250 - 500 mg PO BID PRNQty: 30 0RF Rx Instructions: take with a meal aspirin 81 mg tablet,delayed release (DR/EC) 81 mg PO DAILY 14 Days Qty: 14 0RF oxycodone 5 mg tablet 5 - 10 mg PO Q4H MDD 30 mg PRN (Reason: moderate to severe pain) Qty: 18 0RF Continued omeprazole 20 mg capsule,delayed release(DR/EC) 20 mg PO DAILY Qty: 90 3RF Discharge Instructions Additional Instructions: Surgery: Right shoulder arthroscopy with manipulation under anesthesia, biceps tenodesis, extensive debridement including capsule release, and subacromial decompression. Activity: You should gradually increase range of motion motion and use of your shoulder. You may use your shoulder for all regular activities. Avoid heavy lifting, reaching overhead, and lifting away from body for approximately 6 to 8 weeks. You may use the sling whenever you are out of the house for a few weeks. At home it is best to remove the sling and rest the arm on a pillow at your side or support the operative side with your other hand. A physical therapy prescription will be sent electronically to start in about 2 weeks. Prescriptions: Aspirin 81 mg take 1 daily to prevent a blood clot for 2 weeks Naproxen 250 mg take 1-2 every 12 hours with a meal as needed for moderate pain Oxycodone 5 mg take 1-2 every 4-6 hours as needed for severe pain You may use [id number] Tylenol (acetaminophen) as needed for mild pain. These pain medications may be taken all at once or in different combinations as needed. Also, recommend Colace (docusate) as a stool softener as surgery and pain medici ne cause constipation. You may try cpvs-gho-mpoglsv diphenhydramine (Benadryl) 25-50 mg nightly as a sleep aid Dressings: Remove shoulder bandage after 3 days. Leave the sticky Steri-Strips in place until they fall off or remove them after you shower. Cover the incisions with Band-Aids or leave them open to air. You may shower after 5 days. Follow-up: 10-[address] Hays You may take off the leg compression stockings this evening at home. You may also leave them on a few days longer if you have a history of leg swelling or edema. Let us know right away if you develop any redness, drainage, fevers, chest pain, or trouble breathing. Do not drink alcohol or drive for at least 24 hours after anesthesia. Please call the office during business hours with any questions or concerns. Discharge Orders Discharge Orders: Discharge Order (Routine); Ordered 09/11/21 Ordered By: Umair Hays DS: Diagnosis Discharge Diagnosis (1) Adhesive capsulitis of right shoulder: Status: Acute (2) Bursitis of right shoulder: Status: Acute (3) Tendonitis of long head of biceps brachii of right shoulder: Status: Acute (4) Traumatic tear of right rotator cuff: Status: Acute
--- NOTE | 2021-09-11 09:14 | W.PM.OP ---
Operative Note Operative Note DATE OF PROCEDURE: 09/11/21 PRE-OP DIAGNOSIS: Right: 1. Rotator cuff tear 2. LHB tendinopathy 3. Bursitis 4. Adhesive capsulitis POST-OP DIAGNOSIS: same PROCEDURE: Right: 1. Arthroscopic biceps tenodesis, CPT# 89487. This involved arthroscopically suturing and reattaching the long head of the biceps tendon to the proximal humerus at the superior margin of the bicipital groove with a screw at the correct tension. 2. Extensive debridement, CPT# 29893. This involved using arthroscopic hand instruments, power instruments, and radiofrequency instruments to release the long head of the biceps tendon and debride areas of labral tearing, synovitis, partial articular rotator cuff tearing, and release MGHL anterior and posterior capsule working within the glenohumeral joint anteriorly, superiorly and posteriorly. 3. Subacromial decompression with partial acromioplasty, CPT# 42765. This involved using arthroscopic power instruments and a radiofrequency wand to complete a bursectomy and remove bone spurs on the undersurface of the acromion. 4. Manipulation under anesthesia CPT #11094. This involved steady gradual manipulation of the shoulder in all directions with progressive releases restoring physiologic range of motion. The education administrative assistant was medically required in order to help assist in techniques above, which require positioning the arm, holding the arthroscope, and manipulating multiple instruments and sutures at the same time. This cannot be done without the help of an experienced education administrative assistant. SURGEON: Umair Hays LEGAL TRANSCRIBER: Gila Nelson ANESTHESIA TYPE: General LMA/ETT and Primary Nerve Block Refer to Anesthesia Record ESTIMATED BLOOD LOSS: 10 PATHOLOGY: none sent COMPLICATIONS: None Patient was transported to: PACU Patient's condition: stable Implants: Arthrex: 4.75mm SwiveLocks x 1 Indications: The patient was diagnosed with the above conditions and appropriately indicated for surgical intervention. Please see complete medical record for details. Findings: Exam under anesthesia: Moderate stiffness with external rotation about 45 degrees and forward elevation about 100 degrees with full internal rotation. No instability. Glenohumeral joint: Abundant inflammatory synovitis and capsular thickening capsulitis. Significant anterior capsular contraction and scarring around [facility]. Unstable biceps anchor large SLAP tear. Moderate biceps inflammation. Small partial articular sided supraspinatus tearing. Intact articular infraspinatus. Intact articular cartilage. Restricted axillary pouch. Subacromial space: Moderate bursitis. Inflammatory, but intact bursal rotator cuff. Mild undersurface acromial bone spurring. Procedure Description: In the operating room, general anesthesia was induced. Bilateral shoulders were examined. The operative shoulder demonstrated moderate stiffness as expected. The endpoints were relatively firm. Progressive steady manipulation in all directions alternating initially between restricted forward elevation and external rotation at the side was used taking care to ensure a short lever arm and no undue pressure with excellent and significant soft tissue releases in all directions restoring full symmetrical range of motion through forward elevation, abduction, internal rotation, and external rotation. All of these directions were gently exaggerated maintained multiple times. The patient was then positioned in the beachchair position. All bony prominences were well-padded. Preoperative antibiotics were administered. The shoulder was prepped and draped in the usual sterile fashion. The correct patient, procedure, and side of the procedure were all verified prior to incision. Starting through the posterior portal a standard complete diagnostic arthroscopy was performed of the glenohumeral joint including inspection of the long head of the biceps, anterior and superior labrum, subscapularis tendon, supraspinatus and infraspinatus tendons, and axillary recess. The glenoid and humeral head cartilage as well as the posterior labrum were inspected from an anterior viewing portal. Significant findings and interventions noted above. An all-arthroscopic suprapectoral biceps tenodesis was performed through an anterior portal using a Loop N Tack method with a SutureTape FiberLink cinched around and through the tendon. The biceps was tenotomized from the labrum and fixated with a suture anchor at the superior margin of the bicipital groove. Starting through the posterior portal, the arthroscope was directed into the subacromial space. A lateral 50 yard line lateral portal was omitted and anterior working portal was redirected into the subacromial space as well. A combination of power instruments and a radiofrequency ablator were used to debride bursitis anteriorly, posteriorly, and laterally as well as expose and smooth bone spurring on the undersurface of the acromion. The coracoacromial ligament was partially released. The bursectomy was completed and the rotator cuff was thoroughly inspected with findings noted above. The shoulder was drained of arthroscopic fluid. All portal sites were copiously irrigated. These incisions were closed using 3-0 Monocryl in a buried fashion and then covered with Mastisol, Steri-Strips, Xeroform, dry gauze, and ABDs. The dressings were covered and secured with Medipore tape. The operative extremity was placed into a sling for immobilization. The patient awoke from anesthesia without complication and was transferred to the recovery room in a stable condition.
[2021-09-11] MEDS: Ketorolac 15 MG/ML VIAL IVP (09:25)
--- NOTE | 2021-09-11 11:06 | W.ANESPOSTOP ---
Postoperative Evaluation Date, Time and Location Date Performed: 09/11/21 Time Performed: 11:06 Patient Location: PACU Vital Signs Most Recent Imported Vital Signs: Most Recent Vital Signs Temp Pulse Resp BP Pulse Ox 36.5 C 60 18 122/77 97 09/11/21 10:20 09/11/21 10:20 09/11/21 10:20 09/11/21 10:20 09/11/21 10:20 Pain Score Most Recent Pain Score: Most Recent Pain Score Pain Level 2 09/11/21 10:20 Assessment Mental Status: Awake (Alert & Oriented to Patient Baseline) Airway and Respiratory Function: Patent airway with normal (patient baseline) respiratory exam Cardiovascular Function: Hemodynamically Stable Hydration Status: Adequately Hydrated Nausea & Vomiting: No Nausea or Vomiting Pain: Pain is tolerable per patient Peripheral Nerve Block: Regional nerve block not resolved at time of post operative discharge Postoperative Comments:: Patient seen earlier today in PACU. She was appropriate at that time with minimal discomfort and the block had set up very well.
== END 2021-09-11 10:48 | disposition home or self-care (01) ==
PROVIDERS: PCP Nurse Practitioner Family; Visit Provider Student in an Organized Health Care Education/Training Program
PROC: (CPT 29827; principal; 2021-09-11 07:30)
DX: M75.01 Adhesive capsulitis of right shoulder (principal); M75.21 Bicipital tendinitis, right shoulder; M75.51 Bursitis of right shoulder; M75.111 Incomplete rotator cuff tear or rupture of right shoulder, not specified as traumatic
CPT/HCPCS: 29828; 29823; 29826; 76942; J0690; J1100; J1885; J2250; J2370; J2405; J2704

== ENCOUNTER 2021-09-18 01:41 | Outpatient (CLI) | payer OTHER, SELFPAY ==
[2021-09-18 13:15] LABS: Anion Gap 9.5 mmol/L (3-11); BUN 21 mg/dL (7-18); CO2 27.5 mmol/L (21.0-32.0); CREATININE 0.7 mg/dL (0.55-1.02); Calcium 9.5 mg/dL (8.5-10.1); Calculated LDL 102 mg/dL (<100); Chloride 104 mmol/L (98-107); Cholesterol 188 mg/dL (<200); Glucose 97 mg/dL (74-106); HDL Cholesterol 66 mg/dL (40-60); Potassium 3.4 mmol/L (3.5-5.1); Sodium 141 mmol/L (136-145); Triglyceride 101 mg/dL (<150)
== END 2021-09-18 01:42 | disposition home or self-care (01) ==
LOC: LBO 01:41
PROVIDERS: PCP Nurse Practitioner Family; Visit Provider Nurse Practitioner Family
DX: Z00.00 Encounter for general adult medical examination without abnormal findings (principal); Z13.220 Encounter for screening for lipoid disorders
CPT/HCPCS: 36415; 80048; 80061

== ENCOUNTER 2022-06-24 09:51 | Outpatient (CLI) | payer OTHER, SELFPAY ==
[2022-06-24 10:05] LABS: Hemoglobin A1C 5.8 % (<5.7)
[2022-06-24 10:50] LABS: Anion Gap 9.1 mmol/L (3-11); BUN 13 mg/dL (7-18); CO2 26.9 mmol/L (21.0-32.0); CREATININE 0.9 mg/dL (0.55-1.02); Calcium 9.4 mg/dL (8.5-10.1); Chloride 104 mmol/L (98-107); Estimated GFR 75.03 (mL/min/1.73m2); Glucose 110 mg/dL (74-106); Potassium 3.7 mmol/L (3.5-5.1); Sodium 140 mmol/L (136-145); Vitamin B12 417 pg/mL (193-986)
== END 2022-06-24 09:52 | disposition home or self-care (01) ==
LOC: LBO 09:52
PROVIDERS: PCP Nurse Practitioner Family; Visit Provider Nurse Practitioner Family
DX: R20.2 Paresthesia of skin (principal); K21.9 Gastro-esophageal reflux disease without esophagitis
CPT/HCPCS: 36415; 80048; 82607; 83036

== ENCOUNTER 2022-07-14 00:50 | Outpatient (CLI) | payer OTHER, SELFPAY ==
--- NOTE | 2022-07-14 07:40 | DI.MAMMO_ITS ---
Exam(s) MAMMO SCREENING EXAM: MAMMO SCREENING CLINICAL HISTORY: screening,z12.39 TECHNIQUE: Mammograms were interpreted according to the usual protocol including computer analysis w [employer] CAD system, tomosynthesis and C-view imaging. COMPARISON: 2013 through 2021 FINDINGS: The breasts are composed of heterogeneously dense fibroglandular densities, Breast Density category C . No suspicious masses or suspicious microcalcifications are seen. No skin thickening or abnormal axillary lymph nodes are seen. There has been no significant change from prior exams. IMPRESSION: BI-RADS Category 1, Negative mammogram. Yearly screening mammography is recommended. Breast Density Category C, heterogeneously Dense. The mammogram demonstrates the patient's breast tissue is dense. Dense breast tissue is very common a nd is not abnormal but dense breast tissue can make it harder to find cancer on a mammogram. Also, de nse breast tissue may increase breast cancer risk. This information about the result of the mammogram report was provided to the patient to raise their awareness. Use this report when you speak with the patient about their risks for breast cancer, which includes their family history. At that time, you may recommend additional screening tests (Ultrasound or MRI) as they might be useful based on their r isk. A negative radiographic report should not delay biopsy if a dominant or clinically suspicious mass is present. Up to ten percent of cancers are not identified on mammography. A negative report may reinforce clinical impression. Adenosis and dense breasts may obscure an underlying neoplasm. False positive reports average 6 to 10%.
== END 2022-07-14 01:10 ==
PROVIDERS: PCP Nurse Practitioner Family; Visit Provider Nurse Practitioner Family
DX: Z12.31 Encounter for screening mammogram for malignant neoplasm of breast (principal)
CPT/HCPCS: 77063; 77067

== ENCOUNTER 2023-06-17 08:03 | Outpatient (REF) | payer OTHER, SELFPAY ==
--- NOTE | 2023-06-17 07:15 | PAPFT_PTH ---
PATIENT: Ashlyn Pruitt LOC: [facility] U#:[id number] AGE/SX: 58/F ROOM: RE06/17/[address]: YONY Ortiz : 1965 BED: DIS: 06/17/2023 SPEC #: [id number] RECD: 06/17/23 12:55 STATUS: LASHA WATSON #: [id number] MACEY: 06/17/23 07:[address]: Maria Rothman DEPT: [facility] Cytology RECD BY: Tangela Wetzel Tissues: 1 - CX/ENDOCX FOR PAP SMEARS Procedures: PAP THIN PREP/UVM Screening HPV DNA PROBE Comments: [id number]
== END 2023-06-17 08:04 | disposition home or self-care (01) ==
LOC: LBN 08:03
PROVIDERS: PCP Nurse Practitioner Family; Visit Provider Nurse Practitioner Family
DX: Z12.4 Encounter for screening for malignant neoplasm of cervix (principal)
CPT/HCPCS: 88142; 87624

== ENCOUNTER 2023-06-28 05:15 | Outpatient (CLI) | payer OTHER, SELFPAY ==
[2023-06-28 09:09] LABS: Hemoglobin A1C 5.9 % (<5.7)
[2023-06-28 09:32] LABS: Anion Gap 8.9 mmol/L (3-11); BUN 20 mg/dL (7-18); CO2 27.1 mmol/L (21.0-32.0); CREATININE 0.7 mg/dL (0.55-1.02); Calcium 9.5 mg/dL (8.5-10.1); Calculated LDL 126 mg/dL (<100); Chloride 106 mmol/L (98-107); Cholesterol 216 mg/dL (<200); Estimated GFR 100.81 (mL/min/1.73m2); Glucose 110 mg/dL (74-106); HDL Cholesterol 78 mg/dL (40-60); Potassium 3.8 mmol/L (3.5-5.1); Sodium 142 mmol/L (136-145); TSH (W/Ref FT4) 1.66 uIU/mL (0.36-3.74); Triglyceride 62 mg/dL (<150)
[2023-06-28 19:47] LABS: Hepatitis C Ab w Rflx HCV PCR Negative (Negative)
== END 2023-06-28 05:16 | disposition home or self-care (01) ==
LOC: LBO 05:15
PROVIDERS: PCP Nurse Practitioner Family; Visit Provider Nurse Practitioner Family
DX: Z00.00 Encounter for general adult medical examination without abnormal findings (principal); E78.5 Hyperlipidemia, unspecified; R73.03 Prediabetes
CPT/HCPCS: 36415; 80048; 80061; 86803; 83036; 84443

== ENCOUNTER → 2023-07-18 01:01 | Outpatient (CLI) | payer OTHER, SELFPAY ==
--- NOTE | 2023-07-18 09:00 | DI.MAMMO_ITS ---
Exam(s) MAMMO SCREENING EXAM: MAMMO SCREENING CLINICAL HISTORY: screening,z12.39. TECHNIQUE: Bilateral full field digital CC and MLO mammographic images were obtained with 3D tomosyn thesis and utilizing computer aided detection (CAD). COMPARISON: Prior mammograms were reviewed. FINDINGS: There has been no significant change in the appearance and distribution of the fibroglandular tissue which is again noted be moderately dense.. Asymmetric densities bilaterally appear stable. There are no new obvious spiculated masses nor malignant appearing microcalcification groups. There is no significant architectural distortion nor skin thickening-retraction. IMPRESSION: Stable benign-appearing findings. No obvious radiographic evidence of malignancy. BI-RADS Category 2 - Benign Findings Breast Density - Category C - Heterogeneously dense Breast density Category C or D implies that the patient has dense breast tissue. Dense breast tissue can make it harder to find cancer on a mammogram. Dense breast tissue is also associated with an incr eased risk of breast cancer. This information about the result of the mammogram report was provided to the patient to raise their awareness. Use this report when you speak with the patient about their risks for breast cancer, which includes their family history. At that time, you may recommend additional screening tests (Ultrasoun d or MRI) as these tests may add significant information. A negative radiographic report should not delay biopsy if a dominant or clinically suspicious mass is present. Up to ten percent of cancers are not identified on mammography. A negative report may reinforce clinical impression. Adenosis and dense breasts may obscure an underlying neoplasm. False positive reports average 6 to 10%. Patient will receive a letter notifying them of these results.
--- NOTE | 2023-07-18 17:04 | DI.RAD_ITS ---
Exam(s) XR SHOULDER LT COMPLETE 2+V EXAM: XR SHOULDER LT COMPLETE 2+V CLINICAL HISTORY: left shoulder pain, M25.512. TECHNIQUE: 2D digital imaging was performed. COMPARISON: CR XR SHOULDER RT COMPLETE 2+V from 06/16/2021 FINDINGS: Five views. No evidence of fracture or dislocation or abnormal soft tissue calcifications. Subacromial space unr emarkable. No degenerative changes in the glenohumeral joint. Mild degenerative changes in the AC j oint. Bone density normal. No osseous lesions. No os acromiale. Coracoid process unremarkable. L eft clavicle unremarkable. IMPRESSION: No acute osseous findings in the left shoulder. DATA REPOSITORY: RADIATION DOSE DELIVERED:
== END ==
PROVIDERS: PCP Nurse Practitioner Family; Visit Provider Nurse Practitioner Family
DX: Z12.31 Encounter for screening mammogram for malignant neoplasm of breast (principal); M25.512 Pain in left shoulder
CPT/HCPCS: 77063; 77067; 73030

== ENCOUNTER 2023-08-09 08:12 | Day surgery (SDC) | payer OTHER, SELFPAY ==
[2023-08-09 08:20] VITALS: BP 154/74; PULSE 78; RESP 16; TEMP 36.2; O2SAT 100
--- NOTE | 2023-08-09 08:48 | ANES.PREOP_ITS ---
General Info Date of Service Date Performed: 08/09/23 Height: 5 ft 4 in Weight: 60.781 kg Body Mass Index (BMI): 23.0 Surgical Procedure: Operation Date: 08/09/23 09:50 Proposed Procedure Side Surgeon debbi Grajeda MD Meds Allergies and Home Medications Allergies Allergy/AdvReac Type Severity Reaction Status Date / Time No Known Allergies Allergy Verified 08/09/23 08:42 Home Medication Medication Instructions Recorded acetaminophen 325 mg capsule 325 mg PO ONCE PRN 09/23/21 (Tylenol) calcium carbonate 600 mg-vitamin 1 cap PO DAILY 06/17/23 D3 5 mcg (200 unit) capsule omeprazole 20 mg capsule,delayed 20 mg PO DAILY #90 caps 06/17/23 release antiarthritic combination no.2 900 900 mg PO DAILY 06/22/23 mg tablet (glucosamine-chondroitin) multivitamin with iron (Hair 1 tab PO DAILY 06/22/23 Vitamins tablet) turmeric 400 mg capsule 200 mg PO DAILY 06/22/23 bisacodyl 5 mg tablet,delayed 5 mg PO ONCE #4 tabs 07/21/23 release (Dulcolax (bisacodyl)) docosahexaenoic acid (dha)-epa 120 1 cap PO DAILY 07/21/23 mg-180 mg capsule (Fish Oil) polyethylene glycol 3350 17 17 g PO ONCE #238 grams 07/21/23 gram/dose oral powder Current Visit Medications: Current Medications Generic Name Dose Route Start Last Admin Trade Name Freq PRN Reason Stop Dose Admin Ringer's Solution 1,000 mls @ 80 mls/hr 08/09/23 06:00 IV 08/09/23 23:59 INFUSION ALEX IV Miscellaneous Supplies 1 each 08/09/23 06:00 Iv Access IV 08/09/23 23:59 DIRECTED ALEX Sodium Chloride 0 ml 08/09/23 06:00 Normal Saline Flush 10 Ml Syr IV 08/09/23 23:59 PRN PRN Sodium Chloride 0 ml 08/09/23 06:00 Normal Saline 10 Ml Vial IJ 08/09/23 23:59 DIRECTED PRN Sterile Water 0 ml 08/09/23 06:00 Water,Injection,Sterile 10 Ml Vial IJ 08/09/23 23:59 DIRECTED PRN PFSH Active Problems Active Problems: Problem Status Onset Code Left rotator cuff tear M75.102 Chronic left shoulder pain M25.512, G89.29 White coat syndrome without diagnosis of hypertension R03.0 Hyperlipidemia E78.5 Prediabetes R73.03 Chronic RUQ pain ~2012 R10.11, G89.29 GERD (gastroesophageal reflux disease) K21.9 Onychomycosis B35.1 Medical History Medical History Traumatic tear of right rotator cuff Surgical History Surgical History History of bilateral ligation of fallopian tubes History of esophagogastroduodenoscopy (EGD) (11/03/18) S/P arthroscopy of right shoulder (09/11/21) arthroscopic biceps tenodesis, extensive debridement, Subacromial decompression with partial acromioplasty S/P colonoscopy (11/03/18) Tobacco Smoking/Tobacco Use Status: Never Passive smoking exposure: Yes Second hand exposure: Yes Alcohol Alcohol Intake: never Substance Use Substance use: Never Substance use type: does not use Prental History History 4 Para 3 Hx # Term Pregnancies Multiple births Hx # Pregnancies Ectopic pregnancies AB induced Hx Number of Living Children 3 AB spontaneous 1 Past Pregnancies Del. Date GA/Weeks # Preg Succ Route Wgt Sex Labor Lgth Anesth esia Location Prov Complic Unknown Yes 2721.554 g Female [facility] Unknown Yes 2721.554 g Male [facility] Unknown Yes 2721.554 g Male [facility] Delivery Date: Last Updated by: WERNER Jasmine- Born [birth year] Delivery Date: Last Updated by: WERNER Jasmine- Born 07/[birth year] Delivery Date: Last Updated by: Meaghan Riggins RN [facility]- Born [birth year] Vital Signs and Lab Results Vital Signs Most Recent Vital Signs in EMR: Temp Pulse Resp BP Pulse Ox 36.2 C L 78 16 154/74 H 100 08/09/23 08:20 08/09/23 08:20 08/09/23 08:20 08/09/23 08:20 08/09/23 08:20 Lab Results Blood Type / Crossmatch: No Data to Display Complete Blood Count: No Data to Display Complete Metabolic Panel: No Data to Display Liver Function Panel: No Data to Display Coagulation Panel: No Data to Display Cardiac Panel: No Data to Display Arterial Blood Gas: No Data to Display Venous Blood Gas: No Data to Display Pancreas Panel: No Data to Display Thyroid Panel: No Data to Display Infectious Disease: No Data to Display Blood Cultures: No Data to Display Toxicology Panel: No Data to Display Anesthesia Assessment and Plan Anesthesia History Personal History: No History of Anesthesia Complications Family History: No Family History of Anesthesia Complications Exercise Tolerance Exercise Tolerance: Metabolic Equivalents>4 Pertinent Negatives Pertinent Negatives: No Symptoms of GERD, No Major Cardiovascular Symptoms or Complaints, No Major Pulmonary Symptoms or Complaints and No History of CVA/TIA Cardiac & Pulmonary Exam Cardiac Exam: Normal S1/S2 Heart Sounds Pulmonary Exam: Clear Bilateral Breath Sounds Implantable Cardiac Device Does patient have a Pacemaker or an ICD?: No Airway Exam Known Difficult Airway: No Mallampati Class: 2 Mouth Opening: Normal (> 3cm) Thyromental Distance: Greater than 3 cm Neck Range of Motion: Full ROM Neck Circumference: Normal Teeth Condition: Removable Dentures/Plates Upper and Removable Dentures/Plates Lower ASA Classification ASA Score: ASA 2 Emergency Case?: No NPO Status NPO Status: NPO Clears >2 hours, Solids >8 hours Anesthesia Plan Resuscitation Status: Full Code Anesthesia Technique: General Anesthesia Airway Planned: Endotracheal Tube Pain Management: Surgeon and patient request nerve block Monitors Used: Standard Monitors
[2023-08-09] MEDS: Lactated Ringers 1,000 ML 80 ML IV (09:11)
[2023-08-09 09:15] VITALS: BMI 23.0
--- NOTE | 2023-08-09 09:36 | W.COLOREPORT ---
Date of service: 08/09/23 Time of Service: 09:37 Colonoscopy Report Procedure Description: PROCEDURES PERFORMED: 1. Colonoscopy PREOPERATIVE DIAGNOSIS: Surveillance colonoscopy POSTOPERATIVE DIAGNOSIS: Normal terminal ileum, normal colon, normal rectum SURGEON: Blaine Grajeda MD INDICATION FOR PROCEDURE: 58-year-old woman has a family history of rectal cancer in her brother who from it a few years ago. She is due for 5-year surveillance. Her last colonoscopy had no findings. FINDINGS: Terminal ileum was normal. There were no polyps seen. No inflammation anywhere. No obvious diverticular changes. No obvious hemorrhoid disease. SURVEILLANCE interval/FOLLOW-UP: 5 years because of the family history SPECIMENS: None EBL: Minimal COMPLICATIONS: None QUALITY of prep: Excellent Procedure in detail: The patient gave written consent and was in agreement with the indications, the potential risks as well as the benefits of the procedure. They were taken to the endoscopy suite and laid in the left lateral decubitus position. A timeout was performed and anesthesia was administered which was tolerated well. I started the procedure. Digital rectal and visual examination was performed and grossly within normal limits. A well-lubricated flexible colonoscope was then introduced and passed without any notable difficulty all the way to the cecum identified by the ileocecal valve and the appendiceal orifice. The terminal ileum was deeply intubated and appeared completely normal. The scope was then slowly withdrawn with the above-noted findings. The patient tolerated the procedure well and was taken to the PACU in hemodynamically stable condition.
--- NOTE | 2023-08-09 09:38 | W.PM.DSUDISC ---
Date of service: 08/09/23 Time of Service: 09:38 Discharge Plan Disposition Patient Disposition: Home Condition: Good Discharge Details Attending Provider: Didier Grajeda Primary Care Provider: Maria Rothman Home Meds and New Rx's Prescriptions: No Action acetaminophen [Tylenol] 325 mg capsule 325 mg PO ONCE PRN calcium carbonate-vitamin D3 600 mg-5 mcg (200 unit) capsule 1 cap PO DAILY omeprazole 20 mg capsule,delayed release(DR/EC) 20 mg PO DAILY Qty: 90 3RF turmeric 400 mg capsule 200 mg PO DAILY multivitamin with iron [Hair Vitamins] Tablet 1 tab PO DAILY glucosamine-chondroitin 900 mg tablet 900 mg PO DAILY Fish Oil 120-180 mg capsule 1 cap PO DAILY bisacodyl [Dulcolax (bisacodyl)] 5 mg tablet,delayed release (DR/EC) 5 mg PO ONCE Qty: 4 0RF Rx Instructions: Take per colonoscopy instructions provided by ordering providers office polyethylene glycol 3350 17 gram/dose powder 17 g PO ONCE Qty: 238 0RF Rx Instructions: Take per colonoscopy instructions provided by ordering providers office Discharge Instructions Additional Instructions: FINDINGS: The end of your small intestine (terminal ileum), your entire colon, as well as the rectum all appear completely normal and healthy. No polyps were found. Nothing concerning for cancer. You should repeat another colonoscopy in 5 years because of your family history. Activity:: Activity as Tolerated Diet:: As Tolerated
[2023-08-09 10:09] VITALS: BP 108/65; PULSE 67; RESP 16; TEMP 36.5; O2SAT 100
[2023-08-09 10:22] VITALS: BP 107/67; PULSE 66; RESP 16; TEMP 36.6; O2SAT 96
--- NOTE | 2023-08-09 10:37 | W.ANESPOSTOP ---
Postoperative Evaluation Date, Time and Location Date Performed: 08/09/23 Time Performed: 10:21 Patient Location: Day Surgery Unit Vital Signs Most Recent Imported Vital Signs: Most Recent Vital Signs Temp Pulse Resp BP Pulse Ox 36.6 C 66 16 107/67 96 08/09/23 10:22 08/09/23 10:22 08/09/23 10:22 08/09/23 10:22 08/09/23 10:22 Pain Score Most Recent Pain Score: Most Recent Pain Score Pain Level 0 08/09/23 10:22 Assessment Mental Status: Awake (Alert & Oriented to Patient Baseline) Airway and Respiratory Function: Patent airway with normal (patient baseline) respiratory exam Cardiovascular Function: Hemodynamically Stable Hydration Status: Adequately Hydrated Nausea & Vomiting: No Nausea or Vomiting Pain: Pt. Denies Any Pain Peripheral Nerve Block: Patient did not receive a nerve block
== END 2023-08-09 10:39 | disposition home or self-care (01) ==
PROVIDERS: PCP Nurse Practitioner Family; Visit Provider Student in an Organized Health Care Education/Training Program
PROC: 0DJD8ZZ Inspection of Lower Intestinal Tract, Via Natural or Artificial Opening Endoscopic (ICD-10-PCS; CPT 45378; principal; 2023-08-09 09:45)
DX: Z12.11 Encounter for screening for malignant neoplasm of colon (principal); Z80.0 Family history of malignant neoplasm of digestive organs
CPT/HCPCS: 45378; 00123; J2704

== ENCOUNTER → 2023-08-22 02:22 | Outpatient (CLI) | payer OTHER, SELFPAY ==
--- NOTE | 2023-08-22 14:00 | DI.MRI_ITS ---
Exam(s) MR UPPER JOINT LT WO EXAM: MR UPPER JOINT LT WO CLINICAL HISTORY: ? RTC TEAR,chronic lt shoulder pain,m25.512. TECHNIQUE: Multiplanar multisequence MRI was performed. COMPARISON: Plain films 18 Jul 2023 FINDINGS: BONES: There is no fracture or contusion pattern. Degenerative cysts in the superior humeral head. JOINTS:The acromioclavicular joint shows [id number] degenerative changes. The glenohumeral tio nt is normal. TENDONS: Supraspinatus: Thickening distally. Some intermediate signal consistent with tendinosis. Infraspinatus: Small amount of high signal in the distal supraspinatus tendon, adjacent to a small cy st. This could represent tendinosis or small partial tear. Subscapularis: Unremarkable. [place]: Unremarkable. Biceps and [place]: Edema in the proximal biceps and tendon anchor. MUSCLES: Unremarkable. GLENOID LABRUM: High signal in the superior and anterior labrum could indicate tear. SOFT TISSUES: Unremarkable. OTHER: Subacromial and subdeltoid bursae shows a minimal amount of fluid. Small amount of fluid not ed in the subcoracoid bursa . IMPRESSION: Supraspinatus tendinosis. Small partial tear of the infraspinatus tendon. Tendinosis of upper biceps tendon anchor. High signal in anterior and superior labrum which may represent a tear. DATA REPOSITORY:
== END ==
PROVIDERS: PCP Nurse Practitioner Family; Visit Provider Student in an Organized Health Care Education/Training Program
DX: M25.512 Pain in left shoulder (principal); G89.29 Other chronic pain; M67.812 Other specified disorders of synovium, left shoulder; M75.112 Incomplete rotator cuff tear or rupture of left shoulder, not specified as traumatic; M67.922 Unspecified disorder of synovium and tendon, left upper arm
CPT/HCPCS: 73221

== ENCOUNTER 2023-10-14 08:40 | Day surgery (SDC) | payer OTHER, SELFPAY ==
[2023-10-14] VITALS (23 sets, daily range): BP systolic 113–164; BP diastolic 63–86; PULSE 63–77; RESP 13–23; TEMP 36.2–36.7; O2SAT 98–100; BMI 23.0
--- NOTE | 2023-10-14 07:16 | ROE_ITS ---
Date of service: 10/14/23 Time of Service: 11:30 Operative Note Operative Note DATE OF PROCEDURE: 10/14/23 PRE-OP DIAGNOSIS: Left: 1. Rotator cuff tear 2. LHB tendinopathy 3. Bursitis POST-OP DIAGNOSIS: same PROCEDURE: Left: 1. Arthroscopic biceps tenodesis, CPT# 04226. This involved arthroscopically suturing and reattaching the long head of the biceps tendon to the proximal humerus at the superior margin of the bicipital groove with a screw at the correct tension. 2. Extensive debridement, CPT# 20616. This involved using arthroscopic hand instruments, power instruments, and radiofrequency instruments to release the long head of the biceps tendon and debride areas of labral tearing, SLAP tearing, synovitis, and release MGHL working within the glenohumeral joint anteriorly, superiorly and posteriorly. 3. Subacromial decompression with partial acromioplasty, CPT# 08377. This involved using arthroscopic power instruments and a radiofrequency wand to complete a bursectomy and smooth the undersurface of the acromion. The statistical assistant was medically required in order to help assist in techniques above, which require positioning the arm, holding the arthroscope, and manipulating multiple instruments and sutures at the same time. This cannot be done without the help of an experienced statistical assistant. SURGEON: Umair Hays INFECTION PREVENTION PRACTITIONER: Christi Brambila ANESTHESIA TYPE: Local By Surgeon, General LMA/ETT and Primary Nerve Block Refer to Anesthesia Record ESTIMATED BLOOD LOSS: 5 PATHOLOGY: none sent COMPLICATIONS: None Patient was transported to: PACU Patient's condition: stable Implants: Arthrex: 4.75mm SwiveLocks x 1 Indications: The patient was diagnosed with the above conditions and appropriately indicated for surgical intervention. Please see complete medical record for details. Findings: Exam under anesthesia: Mild external rotation stiffness, relatively full forward elevation. No instability. Glenohumeral joint: Moderately significant anterior rotator interval and [facility] anterior capsule synovitis and capsulitis. Intact subscapularis. Mild articular sided supraspinatus tearing. Large labral tear from anterior through SLAP tear biceps anchor and into the posterior. Significant biceps widening fraying tearing through the intra-articular course. Subacromial space: Mild bursitis, minimal undersurface acromial spurring. Mild rotator cuff fraying without significant tearing or inflammation. Procedure Description: In the operating room, general anesthesia was induced. Bilateral shoulders were examined. The patient was then positioned in the beachchair position. All bony prominences were well-padded. Preoperative antibiotics were administered. The shoulder was prepped and draped in the usual sterile fashion. The correct pat ient, procedure, and side of the procedure were all verified prior to incision. Starting through the posterior portal a standard complete diagnostic arthroscopy was performed of the glenohumeral joint including inspection of the long head of the biceps, anterior and superior labrum, subscapularis tendon, supraspinatus and infraspinatus tendons, and axillary recess. The glenoid and humeral head c artilage as well as the posterior labrum were inspected from an anterior viewing portal. Significant findings and interventions noted above. An all-arthroscopic suprapectoral biceps tenodesis was performed through an anterior portal using a Loop N Tack method with a SutureTape FiberLink cinched around and through the tendon. The biceps was tenotomized from the labrum and fixated with a suture anchor at the superior margin of the bicipital groove. The extra knotless stitch was then shuttled around the biceps stump through the anchor eyelet mechanism and tensioned adding additional fixation with good fixation and security of the tenodesis repair to direct arm pressure and testing. Starting through the posterior portal, the arthroscope was directed into the subacromial space. A lateral 50 yard line lateral portal was omitted and anterior working portal was redirected into the subacromial space. A combination of power instruments and a radiofrequency ablator were used to debride mild bursitis anteriorly, posteriorly, and laterally as well as expose and smooth the undersurface of the acromion. The coracoacromial ligament was minimally released. The bursectomy was completed and the rotator cuff was inspected with findings noted above. The shoulder was drained of arthroscopic fluid. All portal sites were copiously irrigated. These incisions were closed using 3-0 Monocryl in a buried fashion and then covered with Mastisol, Steri-Strips, Xeroform, dry gauze, and ABDs. The dressings were covered and secured with Medipore tape. The operative extremity was placed into a sling for immobilization. The patient awoke from anesthesia without complication and was transferred to the recovery room in a stable condition.
--- NOTE | 2023-10-14 07:16 | W.PM.DSUDISC ---
Date of service: 10/14/23 Time of Service: 14:00 Discharge Plan Disposition Patient Disposition: Home Condition: Stable Discharge Details Attending Provider: Umair Hays Primary Care Provider: Maria Rothman Home Meds and New Rx's Prescriptions: New naproxen 250 mg tablet 250 mg PO BID PRN (Reason: moderate pain and swelling) Qty: 20 0RF Rx Instructions: take with a meal tramadol 50 mg tablet 50 mg PO Q8H PRN (Reason: severe pain) Qty: 9 0RF Continued acetaminophen [Tylenol] 325 mg capsule 325 mg PO ONCE PRN calcium carbonate-vitamin D3 600 mg-5 mcg (200 unit) capsule 1 cap PO DAILY omeprazole 20 mg capsule,delayed release(DR/EC) 20 mg PO DAILY Qty: 90 3RF turmeric 400 mg capsule 200 mg PO DAILY multivitamin with iron [Hair Vitamins] Tablet 1 tab PO DAILY glucosamine-chondroitin 900 mg tablet 900 mg PO DAILY Fish Oil 120-180 mg capsule 1 cap PO DAILY bisacodyl [Dulcolax (bisacodyl)] 5 mg tablet,delayed release (DR/EC) 5 mg PO ONCE Qty: 4 0RF Rx Instructions: Take per colonoscopy instructions provided by ordering providers office polyethylene glycol 3350 17 gram/dose powder 17 g PO ONCE Qty: 238 0RF Rx Instructions: Take per colonoscopy instructions provided by ordering providers office Discharge Instructions Additional Instructions: Surgery: Left shoulder arthroscopy with biceps tenodesis, extensive debridement, and subacromial decompression. Activity: You should gradually increase range of motion motion and use of your shoulder. You may use your shoulder for all regular activities while protecting biceps repair. Avoid any weighted elbow flexion or resisted supination for 6-8 weeks. No heavy lifting, reaching overhead, or lifting away from body for approximately 2-3 months. You may use the sling whenever you are out of the house for a few weeks. At home it is best to remove the sling and rest the arm on a pillow at your side or support the operative side with your other hand. A physical therapy prescription will be sent electronically to start in about 2 weeks. Prescriptions: Naproxen 250 mg take 1 every 12 hours with a meal as needed for moderate pain Tramadol 50 mg take 1 every 8 hours as needed for severe pain You may use [id number] Tylenol (acetaminophen) as needed for mild pain. These pain medications may be taken all at once or in different combinations as needed. Also, recommend Colace (docusate) as a stool softener as surgery and pain medicine cause constipation. You may try [id number] diphenhydramine (Benadryl) 25-50 mg nightly as a sleep aid Dressings: Remove shoulder bandage after 3 days. Leave the sticky Steri-Strips in place until they fall off or remove them after you shower. Cover the incisions with Band-Aids or leave them open to air. You may shower after 5 days. Follow-up: 10-[address] Hays You may take off the leg compression stockings this evening at home. You may also leave them on a few days longer if you have a history of leg swelling or edema. Let us know right away if you develop any redness, drainage, fevers, chest pain, or trouble breathing. Do not drink alcohol or drive for at least 24 hours after anesthesia. Please call the office during business hours with any questions or concerns. Discharge Orders Discharge Orders: Discharge Order (Routine); Ordered 10/14/23 Ordered By: Christi Brambila DS: Diagnosis Discharge Diagnosis (1) SLAP lesion of left shoulder: Status: Acute
[2023-10-14] MEDS: Lactated Ringers 1,000 ML 30 ML IV (09:40)
--- NOTE | 2023-10-14 10:44 | ANES.PREOP_ITS ---
General Info Date of Service Date Performed: 10/14/23 Height: 5 ft 4 in Weight: 60.781 kg Body Mass Index (BMI): 23.0 Surgical Procedure: Operation Date: 10/14/23 10:40 Proposed Procedure Side Surgeon p Shoulder Rotator Cuff Arthroscopic w/Extensive Debridement, Biceps Tenodesis, Subacromial Decompression Left Umair Hays MD Meds Allergies and Home Medications Allergies Allergy/AdvReac Type Severity Reaction Status Date / Time No Known Allergies Allergy Verified 10/14/23 09:11 Home Medication ?Medication ?Instructions ?Recorded acetaminophen 325 mg capsule 325 mg PO ONCE PRN 09/23/21 (Tylenol) calcium carbonate 600 mg-vitamin 1 cap PO DAILY 06/17/23 D3 5 mcg (200 unit) capsule omeprazole 20 mg capsule,delayed 20 mg PO DAILY #90 caps 06/17/23 release antiarthritic combination no.2 900 900 mg PO DAILY 06/22/23 mg tablet (glucosamine-chondroitin) multivitamin with iron (Hair 1 tab PO DAILY 06/22/23 Vitamins tablet) turmeric 400 mg capsule 200 mg PO DAILY 06/22/23 bisacodyl 5 mg tablet,delayed 5 mg PO ONCE #4 tabs 07/21/23 release (Dulcolax (bisacodyl)) docosahexaenoic acid (dha)-epa 120 1 cap PO DAILY 07/21/23 mg-180 mg capsule (Fish Oil) polyethylene glycol 3350 17 17 g PO ONCE #238 grams 07/21/23 gram/dose oral powder Current Visit Medications: Current Medications Generic Name Dose Route Start Last Admin Trade Name Freq PRN Reason Stop Dose Admin Droperidol 0.625 mg 10/14/23 10:43 Droperidol 5 Mg/2 Ml Vial IVP 11/13/23 10:42 DIRECTED PRN Nausea Ephedrine Sulfate 0 mg 10/14/23 10:43 Ephedrine 25 Mg/5 Ml Syringe IVP 11/13/23 10:42 DIRECTED PRN Fentanyl 0 mcg 10/14/23 10:43 Fentanyl 100 Mcg/2 Ml Vial IVP 11/13/23 10:42 DIRECTED PRN Hydromorphone HCl 0 mg 10/14/23 10:43 Hydromorphone 2 Mg/Ml Syr IVP 11/13/23 10:42 DIRECTED PRN Ringer's Solution 1,000 mls @ 30 mls/hr 10/14/23 06:00 10/14/23 09:40 IV 11/12/23 23:59 30 mls/hr INFUSION ALEX Administration Cefazolin Sodium/Dextrose 2 gm in 50 mls @ 100 mls/hr 10/14/23 06:00 Ancef Duplex IVPB 10/14/23 16:00 PREOP ALEX Tranexamic Acid/Sodium Chloride 1,000 mg in 100 mls @ 600 mls/hr 10/14/23 06:00 IVPB 10/14/23 16:00 PREOP ALEX IV Miscellaneous Supplies 1 each 10/14/23 06:00 Iv Access IV 11/12/23 23:59 DIRECTED ALEX Naloxone HCl 0 mg 10/14/23 10:43 Naloxone 0.4 Mg/Ml Vial IVP 11/13/23 10:42 PRN PRN Oxycodone HCl 0 mg 10/14/23 07:15 Oxycodone 5 Mg Tab PO 11/13/23 07:14 Q3H PRN PRN Pain Sodium Chloride 0 ml 10/14/23 06:00 Normal Saline Flush 10 Ml Syr IV 11/12/23 23:59 PRN PRN Sodium Chloride 0 ml 10/14/23 06:00 Normal Saline 10 Ml Vial IJ 11/12/23 23:59 DIRECTED PRN Sterile Water 0 ml 10/14/23 06:00 Water,Injection,Sterile 10 Ml Vial IJ 11/12/23 23:59 DIRECTED PRN PFSH Active Problems Active Problems: Problem Status Onset Code Impingement syndrome of left shoulder Acute M75.42 SLAP lesion of left shoulder Acute S43.432A Left rotator cuff tear Acute M75.102 White coat syndrome without diagnosis of hypertension Chronic R03.0 Hyperlipidemia Chronic E78.5 Prediabetes Chronic R73.03 Chronic RUQ pain Chronic ~2012 R10.11, G89.29 GERD (gastroesophageal reflux disease) Chronic K21.9 Onychomycosis Chronic B35.1 Medical History Medical History Traumatic tear of right rotator cuff Surgical History Surgical History S/P arthroscopy of right shoulder (09/11/21) arthroscopic biceps tenodesis, extensive debridement, Subacromial decompression with partial acromioplasty S/P colonoscopy (08/2023) History of esophagogastroduodenoscopy (EGD) (11/03/18) History of bilateral ligation of fallopian tubes Tobacco Smoking/Tobacco Use Status: Never Passive smoking exposure: Yes Second hand exposure: Yes Alcohol Alcohol Intake: former Substance Use Substance use: Never Substance use type: does not use Prental History History 4 Para 3 Hx # Term Pregnancies Multiple births Hx # Pregnancies Ectopic pregnancies AB induced Hx Number of Living Children 3 AB spontaneous 1 Past Pregnancies Del. Date GA/Weeks # Preg Succ Route Wgt Sex Labor Lgth Anesth esia Location Prov Complic Unknown Yes 2721.554 g Female [facility] Unknown Yes 2721.554 g Male [facility] Unknown Yes 2721.554 g Male [facility] Delivery Date: Last Updated by: WERNER Jasmine- Born [birth year] Delivery Date: Last Updated by: WERNER Jasmine- Born 07/[birth year] Delivery Date: Last Updated by: WERNER Jasmine- Born [birth year] Vital Signs and Lab Results Vital Signs Most Recent Vital Signs in EMR: Most Recent Vital Signs Temp Pulse Resp BP Pulse Ox 36.6 C 69 18 164/65 H 100 10/14/23 09:13 10/14/23 09:13 10/14/23 09:13 10/14/23 09:13 10/14/23 09:13 Point of Care Results Point of Care Results: POC- Test(urine) Negative 10/14/23 10:20 Lab Results Blood Type / Crossmatch: No Data to Display Complete Blood Count: No Data to Display Complete Metabolic Panel: No Data to Display Liver Function Panel: No Data to Display Coagulation Panel: No Data to Display Cardiac Panel: No Data to Display Arterial Blood Gas: No Data to Display Venous Blood Gas: No Data to Display Pancreas Panel: No Data to Display Thyroid Panel: No Data to Display Infectious Disease: No Data to Display Blood Cultures: No Data to Display Toxicology Panel: No Data to Display Anesthesia Assessment and Plan Anesthesia History Personal History: No History of Anesthesia Complications Family History: No Family History of Anesthesia Complications Exercise Tolerance Exercise Tolerance: Metabolic Equivalents>4 Pertinent Negatives Pertinent Negatives: No Symptoms of GERD Cardiac & Pulmonary Exam Cardiac Exam: Normal S1/S2 Heart Sounds Pulmonary Exam: Clear Bilateral Breath Sounds Implantable Cardiac Device Does patient have a Pacemaker or an ICD?: No Airway Exam Known Difficult Airway: No Mallampati Class: 2 Mouth Opening: Normal (> 3cm) Thyromental Distance: Greater than 3 cm Neck Range of Motion: Full ROM Neck Circumference: Normal Teeth Condition: Removable Dentures/Plates Upper ASA Classification ASA Score: ASA 2 Emergency Case?: No NPO Status NPO Status: NPO Clears >2 hours, Solids >8 hours Anesthesia Plan Resuscitation Status: Full Code Anesthesia Technique: General Anesthesia Airway Planned: Endotracheal Tube Monitors Used: Standard Monitors
[2023-10-14] MEDS: ceFAZolin 2 GM/50 ML BAG IVPB (11:24)
[2023-10-14] MEDS: TRANEXAMIC ACID/SOD. CHL. 1,000 MG/100 ML BAG 600 MG IVPB (11:40)
--- NOTE | 2023-10-14 11:59 | W.ANESNERVE ---
Nerve Block Single Injection Procedure Date and Time Date Performed: 10/14/23 Procedure Start: 11:04 Location Where Procedure Performed Procedure Location: Day Surgery Unit Reason Performed: Postoperative Analgesia Requesting Provider: Umair Hays Timeout Performed Timeout Performed: Yes Monitoring Used ECG, Blood Pressure, SpO2, ETCO2 and See EMR for corresponding vital signs Sterility Sterility: Hand Hygiene, Surgical Cap, Surgical Mask, Sterile Gloves, Eye Protection and Chlorhexidine Sedation Given During Procedure Sedation Given (Indicate Dose Given): Versed IV Dose:: 2mg IVP Patient Mental Status Patient Mental Status: Sedate with meaningful communication Nerve Block 1st Nerve Block: Laterality: Left Block Type: Interscalene Ultrasound Image Saved?: Yes Needle / Catheter Used: 80mm SonoPlex II Local Anesthetic Bolus (Indicate Dose Given): Lidocaine used for local infiltration of skin, Bupivacaine 0.5% Dose:: 0.5%/10cc (50mg) and Exparel Dose:: 1.33%/10cc (133mg) Additives (Indicate Dose Given): Epinephrine to make 1:200,000 (5mcg/ml) Dose:: 100mcg and Decadron Dose:: 10mg PF Ultrasound: Sterile probe cover and gel used Nerve Stimulator: Not Used Paresthesia: None Procedure Tolerated: No Complications and Patient tolerated well Procedure Outcome: Successful Performed By: Buster Díaz
[2023-10-14] MEDS: Bupivacaine 0.25% Pres-Free W/EPI 30 ML VIAL (12:06)
[2023-10-14] MEDS: EPINEPHrine 10 MG/10 ML ML (12:48)
--- NOTE | 2023-10-14 14:20 | W.ANESPOSTOP ---
Postoperative Evaluation Date, Time and Location Date Performed: 10/14/23 Time Performed: 14:20 Patient Location: Day Surgery Unit Vital Signs Most Recent Imported Vital Signs: Most Recent Vital Signs Temp Pulse Resp BP Pulse Ox 36.7 C 68 16 140/77 100 10/14/23 14:08 10/14/23 14:08 10/14/23 14:08 10/14/23 14:08 10/14/23 14:08 Pain Score Most Recent Pain Score: Most Recent Pain Score Pain Level 2 10/14/23 14:08 Assessment Mental Status: Awake (Alert & Oriented to Patient Baseline) Airway and Respiratory Function: Patent airway with normal (patient baseline) respiratory exam Cardiovascular Function: Hemodynamically Stable Hydration Status: Adequately Hydrated Nausea & Vomiting: No Nausea or Vomiting Pain: Pain is tolerable per patient Peripheral Nerve Block: Regional nerve block not resolved at time of post operative discharge
== END 2023-10-14 14:35 | disposition home or self-care (01) ==
LOC: SUR 08:40
PROVIDERS: PCP Nurse Practitioner Family; Visit Provider Student in an Organized Health Care Education/Training Program
PROC: (CPT 29827; principal; 2023-10-14 10:30)
DX: S43.432A Superior glenoid labrum lesion of left shoulder, initial encounter (principal); X58.XXXA Exposure to other specified factors, initial encounter; M75.102 Unspecified rotator cuff tear or rupture of left shoulder, not specified as traumatic; M75.42 Impingement syndrome of left shoulder; M75.82 Other shoulder lesions, left shoulder
CPT/HCPCS: 29828; 29823; 29826; 76942; 81025; C9290; J0131; J0171; J0665; J0690; J1100; J1885; J2001; J2250; J2405; J2704

== ENCOUNTER 2024-05-21 12:57 | Outpatient (CLI) | payer OTHER, SELFPAY ==
--- NOTE | 2024-05-21 12:45 | RT.EKG_ITS ---
APPROVED REPORT Exam: Resting ECG Reason for Exam: heart flutter Patient Location: O HR:88 bpm ECG Measurements Heart Rate 88 AXIS RI 151 P 23 QRSd 104 QRS -6 QT 365 T 21 QTc 442 Conclusion Sinus rhythm...normal P axis, V-rate 50- 99 Abnormal R-wave progression, early transition...QRS area>0 in V2 Borderline T abnormalities, anterior leads...T flat or neg, V2-V4
== END 2024-05-21 12:58 | disposition home or self-care (01) ==
LOC: DI.CM 12:58
PROVIDERS: PCP Nurse Practitioner Family; Visit Provider Nurse Practitioner Family
DX: I49.8 Other specified cardiac arrhythmias (principal)
CPT/HCPCS: 93010

== ENCOUNTER 2024-05-21 14:06 | Outpatient (CLI) | payer OTHER, SELFPAY ==
[2024-05-21 14:49] LABS: HCT 38.5 % (36.0-46.0); HGB 12.2 g/dL (11.2-15.7); MCH 23.5 pg (27.0-33.0); MCHC 31.7 % (32.0-36.0); MCV 74 fL (80-95); MPV 9.5 fL (8.0-11.0); Platelet Count 499 10^3/uL (130-400); RDW 15.8 % (11.7-14.6); RDW-SD 41.8 fL; WBC 8.82 10^3/uL (4.4-10.8)
[2024-05-21 15:00] LABS: Hemoglobin A1C 5.4 % (<5.7)
[2024-05-21 15:24] LABS: RBC 5.19 10^6/uL (3.93-5.22)
[2024-05-21 15:39] LABS: ALT 27 U/L (14-59); AST 19 U/L (15-37); Albumin 4.4 g/dL (3.4-5.0); Alkaline Phosphatase 59 U/L (46-116); Anion Gap 8.5 mmol/L (3-11); BUN 10 mg/dL (7-18); Bilirubin, Total 0.5 mg/dL (0.2-1.0); CO2 26.5 mmol/L (21.0-32.0); CREATININE 0.7 mg/dL (0.55-1.02); Chloride 106 mmol/L (98-107); Estimated GFR 100.19 (mL/min/1.73m2); Glucose 104 mg/dL (74-106); Potassium 4.2 mmol/L (3.5-5.1); Sodium 141 mmol/L (136-145); TSH (W/Ref FT4) 0.99 uIU/mL (0.36-3.74); Total Protein 7.4 g/dL (6.4-8.2)
[2024-05-21 22:56] LABS: Lab Add On Test DONE
[2024-05-21 23:15] LABS: Iron 21 ug/dL (50-170); Total Iron Binding Capacity 400 ug/dL (250-450); Transferrin Sat 5 % (15-50)
[2024-05-21 23:28] LABS: Ferritin 8 ng/mL (8-252)
[2024-05-23 10:08] LABS: Transferrin 335 mg/dL (201-352)
== END 2024-05-21 14:07 | disposition home or self-care (01) ==
LOC: LBO 14:07
PROVIDERS: PCP Nurse Practitioner Family; Visit Provider Nurse Practitioner Family
DX: R73.03 Prediabetes (principal); R00.2 Palpitations; R71.8 Other abnormality of red blood cells
CPT/HCPCS: 36415; 80053; 85027; 82728; 83036; 83540; 83550; 84443; 84466

== ENCOUNTER 2024-05-24 11:10 | Outpatient (RCR) | payer OTHER, SELFPAY ==
--- NOTE | 2024-05-31 12:20 | W.HOLTRPT ---
Date of service: 05/31/24 Time of Service: 12:20 Holter Monitor Report Referring Provider:: Karol Rajput Indications:: Palpitations Holter Monitor Note: This is a 48-hour Holter monitor. Rhythm throughout was sinus with an average heart rate of 76. Minimum was 44, maximum 128. There are occasional premature ventricular contractions. There were very rare isolated atrial premature beats. Several brief self-limited atrial runs occurred. The longest of these lasted 5 seconds. There was no atrial fibrillation, no high-grade AV block, no pauses greater than 3 seconds. Symptoms were reported which did not correlate to any dysrhythmia
== END 2024-06-04 23:59 | disposition home or self-care (01) ==
LOC: CARDOPNVT 11:10
PROVIDERS: PCP Nurse Practitioner Family; Visit Provider Internal Medicine Cardiovascular Disease
DX: R00.2 Palpitations (principal)
CPT/HCPCS: 93225; 93226

== ENCOUNTER 2024-06-27 03:33 | Outpatient (CLI) | payer OTHER, SELFPAY ==
[2024-06-27 13:01] LABS: HCT 35.6 % (36.0-46.0); HGB 11.6 g/dL (11.2-15.7); MCH 25.6 pg (27.0-33.0); MCHC 32.6 % (32.0-36.0); MCV 79 fL (80-95); Platelet Count 335 10^3/uL (130-400); RBC 4.53 10^6/uL (3.93-5.22); RDW 20.9 % (11.7-14.6); RDW-SD 57.2 fL; WBC 7.58 10^3/uL (4.4-10.8)
[2024-06-27 13:43] LABS: ALT 27 U/L (14-59); AST 19 U/L (15-37); Albumin 3.8 g/dL (3.4-5.0); Alkaline Phosphatase 52 U/L (46-116); Anion Gap 5.2 mmol/L (3-11); BUN 14 mg/dL (7-18); Bilirubin, Total 0.6 mg/dL (0.2-1.0); CO2 27.8 mmol/L (21.0-32.0); CREATININE 0.9 mg/dL (0.55-1.02); Calcium 9.2 mg/dL (8.5-10.1); Chloride 108 mmol/L (98-107); Ferritin 32 ng/mL (8-252); Glucose 94 mg/dL (74-106); Potassium 3.7 mmol/L (3.5-5.1); Sodium 141 mmol/L (136-145); Total Protein 6.6 g/dL (6.4-8.2)
== END 2024-06-27 03:34 | disposition home or self-care (01) ==
LOC: LBO 03:33
PROVIDERS: PCP Nurse Practitioner Family; Visit Provider Nurse Practitioner Family
DX: E61.1 Iron deficiency (principal)
CPT/HCPCS: 36415; 80053; 85027; 82728

== ENCOUNTER 2024-07-23 02:34 | Outpatient (CLI) | payer OTHER, SELFPAY ==
--- NOTE | 2024-07-23 13:07 | DI.MAMMO_ITS ---
Exam(s) MAMMO SCREENING EXAM: MAMMO SCREENING CLINICAL HISTORY: screening,z12.39 TECHNIQUE: Mammograms were interpreted according to the usual protocol including computer analysis w [employer] CAD system, tomosynthesis and C-view imaging. COMPARISON: 2015 through 2023 FINDINGS: The breasts are composed of heterogeneously dense fibroglandular densities, Breast Density category C . No suspicious masses or suspicious microcalcifications are seen. No skin thickening or abnormal axillary lymph nodes are seen. There has been no significant change from prior exams. IMPRESSION: BI-RADS Category 1, Negative mammogram. Yearly screening mammography is recommended. Breast Density Category C, heterogeneously Dense. Breast density Category C or D implies that the patient has dense breast tissue. Dense breast tissue can make it harder to find cancer on a mammogram. Dense breast tissue is also associated with an incr eased risk of breast cancer. This information about the result of the mammogram report was provided to the patient to raise their awareness. Use this report when you speak with the patient about their risks for breast cancer, which includes their family history. At that time, you may recommend additional screening tests (Ultrasoun d or MRI) as these tests may add significant information. A negative radiographic report should not delay biopsy if a dominant or clinically suspicious mass is present. Up to ten percent of cancers are not identified on mammography. A negative report may reinforce clinical impression. Adenosis and dense breasts may obscure an underlying neoplasm. False positive reports average 6 to 10%.
== END 2024-07-23 02:54 ==
LOC: DI 02:34
PROVIDERS: PCP Nurse Practitioner Family; Visit Provider Nurse Practitioner Family
DX: Z12.31 Encounter for screening mammogram for malignant neoplasm of breast (principal)
CPT/HCPCS: 77063; 77067